=== PATIENT | male | born 1960 | race Caucasian/White ===

== ENCOUNTER → 2019-10-26 13:20 | Outpatient (CLI) | payer OTHER, SELFPAY ==
--- NOTE | 2019-10-26 13:21 | CA_ITS ---
APPROVED REPORT Exam: Exercise Treadmill Technologist: Anisa Vaughan, Ht: 6 ft 0 in Wt: 280 lbs BSA: 2.46 m2 HR: 66 bpm BP: 125/81 mmHg Indications: CAD Medical History Medications: lisinopril Allergies: codeine, hydrocodone Cardiac Risk Factors: HTN, FHX of CAD, Smoking Stress Test Details Test: Emre HR Resting HR: 79 bpm Max Heart Rate (APMHR): 162 bpm Max HR Achieved: 152 bpm Target HR (85% APMHR): 137 bpm % of APMHR: 93 Recovery HR: 117 bpm BP Resting BP: 125/81 mmHg Max BP: 160.0/88 mmHg Recovery BP: 128.0/78.0 mmHg ECG Resting ECG: Sinus Rhythm Clinical Exercise duration: 06:28 min Highest Stage Achieved: Stage 3: 3.4 mph at 14% grade. Exercise capacity: 7.0 METs Stress ECG Conclusion Emre protocol completed. Pt. c/o SOB at peak exercise that resolved during recovery. No chest pain. Occ PVC. Less than 1.5mm of ST Depression. Gxt only. Appropiate BP response. Normal exercise treadmill stress test Test Summary REST . . . . . . . Sitting REST 04:40 0.0 0.0 79 . 125/ 81 . . Stage 1 01:00 10.0 1.7 105 . . . . Stage 1 02:00 10.0 1.7 121 . . . . Stage 1 03:00 10.0 1.7 128 . . . . Stage 2 01:00 12.0 2.5 134 . 152/ 84 . . Stage 2 02:00 12.0 2.5 144 . 152/ 84 . . Stage 2 03:00 12.0 2.5 145 . 160/ 88 . . Stage 3 00:28 14.0 3.4 149 . . . Stop exercise at 06:28 RECOVERY 01:00 0.0 0.0 141 . . . . RECOVERY 02:00 0.0 0.0 124 . . . . RECOVERY 03:00 0.0 0.0 115 . 128/ 78 . . RECOVERY 04:00 0.0 0.0 112 . 147/ 73 . . RECOVERY 05:00 0.0 0.0 109 . 147/ 73 . . RECOVERY 05:24 0.0 0.0 108 . 127/ 72 . . Electronically signed by : Eugenio Guaman, 10/26/2019 19:49:19
--- NOTE | 2019-10-26 13:21 | CA_ITS ---
APPROVED REPORT EXAM: Comprehensive 2D, Doppler, and color-flow Echocardiogram Customer Solutions Coordinator: Tayler Elkins RVT Ht: 6 ft 4 in Wt: 279lbs BSA: 2.55 BP: 146/83 mmHg Indications: HTN,FAM,STENTS,EX SMOKER TDS 2D Dimensions LVOT 1.75 cm (M/F) 1.5-2.5 M-Mode Dimensions RVDd 3.26 cm (0.9-2.6) LVDd 4.35 cm (3.5-5.7) LVDs 3.02 cm (3.5-5.7) IVSd 0.76 cm (0.6-1.1) PWd 0.76 cm (0.6-1.1) EF (Teich) 58.30% FS 30.60% EDV (Teich) 85.40 mL ESV (Teich) 35.60 mL LV Diastology E/A Ratio 0.75 Mitral Valve MV A Velocity 56.00 (40-130 cm/s) Left Ventricle Left atrium is mildly enlarged, left ventricle is normal size, mild concentric left ventricular hypertrophy, visually estimated ejection fraction 55% with no regional wall motion abnormality, grade 1 diastolic dysfunction seen without tissue Doppler evidence of raise left atrial pressure. Right Ventricle Right atrium and right ventricle are mildly enlarged with normal contractility. Aortic Valve Aortic valve is minimally thickened and fibrosed, there is no aortic stenosis aortic insufficiency. Mitral Valve Mitral valve leaflets are minimally thickened, there is mild mitral regurgitation. Tricuspid Valve Tricuspid valve is grossly normal, there is mild tricuspid regurgitation, tricuspid regurgitation jet velocity is inadequate for calculation of the right ventricular systolic pressure. Pulmonic Valve Pulmonic valve is poorly visualized. Great Vessels Aortic root is normal size. Pericardium Trivial pericardial effusion noted. Conclusion 1. Mild biatrial enlargement, normal left ventricular size, mild concentric left ventricular hypertrophy, visually estimated ejection fraction 55% with no regional wall motion abnormality, grade 1 diastolic dysfunction seen without tissue Doppler evidence of raise left atrial pressure. 2. Mildly enlarged right ventricle with normal contractility. 3. Mild mitral and tricuspid regurgitation. 4. Trivial pericardial effusion noted. Electronically signed by : Eugenio Guaman, 10/26/2019 18:37:13
== END ==
PROVIDERS: PCP Family Medicine; Visit Provider Urology
DX: I10 Essential (primary) hypertension (principal); R06.00 Dyspnea, unspecified; Z02.4 Encounter for examination for driving license
CPT/HCPCS: 93017; 93306

== ENCOUNTER 2020-01-10 12:30 | Emergency (ER) | payer OTHER, SELFPAY ==
[2020-01-10 12:41] VITALS: BP 158/89; PULSE 92; RESP 20; O2SAT 98; BMI 38.0
--- NOTE | 2020-01-10 12:45 | HMH.EDUTC ---
[facility] [place] Clinical Impression: Muscle strain Disposition: Home, Self-Care Condition on Discharge: Good Instructions: DI for Low Back Pain, DI for Muscle Strain Additional Instructions: follow up with pcp this week if symptoms worsen or do not improve return Prescriptions: predniSONE [Prednisone 20mg Tab] 20 mg PO BID #10 tab Prescription Printed Referrals: Nalini Junior APRN [Primary Care Provider] - Forms: Work/School Release Medical Decision Making - Jose Inquiry Pt receiving controlled substance: No Vital Signs: 01/10/20 12:41 Pulse Rate [Radial] 92 H Respiratory Rate 20 Blood Pressure [Right Arm] 158/89 H Blood Pressure Mean [Right Arm] 112 Blood Pressure Source [Right Arm] Automatic Cuff Blood Pressure Position [Right Arm] Sitting 02 Sat by Pulse Oximetry 98 Oxygen Delivery Method Room Air [facility] [place] - General Chief complaint: Urgent Treatment Center Stated complaint: back pain Time Seen by Provider: 01/10/20 12:45 Mode of Arrival: Ambulatory Source of Information: Patient Limitations: No Limitations Description of Symptoms (Recalled from Triage Doc. by RN): States he hurt his back saturday lifting something. HEENT Symptoms (Recalled from RN notes): No Resp Symptoms (Recalled from RN notes): No Skin Symptoms (Recalled from RN notes): No MS Symptoms (Recalled from RN notes): Yes Functional Status (Recalled from RN notes): wnl - History of Present Illness Provider Complaint: 59 yr old male presents for low back pain. pt states he was lifting something on saturday and twisted and felt a pull in his lower back. Pt states pain with movement. denies loss of bowel or bladder. Pt states pain radiates into buttocks but not down legs. - Related Data Home Medications Medication Instructions Recorded Confirmed lisinopril 20 1 tab PO DAILY tab 10/19/19 11/06/19 mg-hydrochlorothiazide 12.5 mg tablet Previous Rx's Medication Instructions Recorded lisinopril 20 mg tablet 20 mg PO DAILY #30 tab 10/19/19 aspirin 81 mg tablet,delayed 81 mg PO DAILY #30 tab 11/06/19 release rosuvastatin 20 mg tablet 20 mg PO DAILY #30 tab 11/06/19 predniSONE [Prednisone 20mg 20 mg PO BID #10 tab 01/10/20 Tab] Allergies Allergy/AdvReac Type Severity Reaction Status Date / Time codeine [CODEINE] Allergy Unknown Verified 11/06/19 09:11 hydrocodone [HYDROCODONE] Allergy Unknown Verified 11/06/19 09:11 - Worker's Comp Is this a Worker's Comp case?: No [facility] History - Hepatitis A Screen Drug use history?: No High risk sexual behaviors?: No History of sexually transmitted infection?: No Currently employed?: No Childcare worker?: No Do you have indoor plumbing?: Yes Do you have electricity?: Yes Attestation statement:: This patient has been screened for Hepatitis A risk factors. I have reviewed the patient's past medical history: Yes Medical History: Reports:: Cancer, Hypertension Denies:: Diabetes Mellitus Type 1, Diabetes Mellitus Type 2 - Social History Smoking Status: Former smoker Alcohol Intake: never Occupational Status: other Housing: house Household Members: spouse ROS Obtained: Yes Systems reviewed as appropriate & no additional complaints - Constitutional Constitutional: Reports system reviewed and no additional complaints, except as docu, Denies fatigue, Denies fever(s) - Eyes Eyes: Reports system reviewed and no additional complaints, except as docu, Denies change in vision - ENT Ears, Nose, Mouth, and Throat: Reports system reviewed and no additional complaints, except as docu, Denies bleeding gums - Cardiovascular Cardiovascular: Reports system reviewed and no additional complaints, except as docu, Denies chest pain at rest - Respiratory Respiratory: Yes system reviewed and no additional complaints, except as docu, No change in phlegm color - Gastrointestinal Gastrointestingal: Reports: system reviewed and no additional complaints, exc
[2020-01-10 13:00] VITALS: BP 158/89; PULSE 92; RESP 20; TEMP 36.7; O2SAT 98
== END 2020-01-10 13:02 | disposition home or self-care (01) ==
PROVIDERS: Emergency Provider Nurse Practitioner Family; PCP Nurse Practitioner
DX: S33.5XXA Sprain of ligaments of lumbar spine, initial encounter (principal); X50.1XXA Overexertion from prolonged static or awkward postures, initial encounter; Y92.019 Unspecified place in single-family (private) house as the place of occurrence of the external cause; I10 Essential (primary) hypertension; E78.5 Hyperlipidemia, unspecified; I25.10 Atherosclerotic heart disease of native coronary artery without angina pectoris
CPT/HCPCS: 96372; 99201

== ENCOUNTER 2020-01-29 11:39 | Emergency (ER) | payer OTHER, SELFPAY ==
[2020-01-29 12:27] VITALS: BP 152/89; PULSE 64; RESP 20; TEMP 36.4; O2SAT 97; BMI 36.6
--- NOTE | 2020-01-29 12:57 | HMH.EDUTC ---
[facility] [place] Clinical Impression: Low back pain Qualifiers: Chronicity: acute Back pain laterality: right Sciatica presence: with sciatica Sciatica laterality: sciatica of right side Qualified Code(s): M54.41 - Lumbago with sciatica, right side Disposition: Home, Self-Care Condition on Discharge: Good Instructions: Low Back Pain, DI for Low Back Pain Additional Instructions: Go home and rest. It would be best if you rested tomorrow too. No heavy lifting. No twisting. Take the oral medications as directed. The muscle relaxer (robaxin) will make you drowsy, so don't drive or operate heavy machinery after taking it. Don't start the oral steroids (medrol dose pack) until tomorrow, since you had the shots in here today. Follow up with your regular doctor. GO TO THE ER FOR ANY WORSENING SYMPTOMS OR CONCERN, ESPECIALLY BOWEL OR BLADDER ISSUES, SADDLE AREA NUMBNESS, FEVER, ETC Prescriptions: methylPREDNISolone [Medrol] 4 mg PO DIRECTED 6 Days #21 tab.ds.pk Transmission Status: Received by [facility] Methocarbamol [Robaxin 500mg Tab] 500 mg PO BIDP PRN #30 tab PRN Reason: Muscle Spasm Transmission Status: Received by [facility] Referrals: Nalini Junior APRN [Primary Care Provider] - Forms: Work/School Release Time of Disposition: 12:59 Medical Decision Making - Medical Records Medical records reviewed: No: I reviewed the patient's medical records. - Jose Inquiry Pt receiving controlled substance: No Vital Signs: 01/29/20 12:27 01/29/20 13:39 Temperature 97.6 F 97.6 F Temperature Source Oral Oral Pulse Rate 64 Pulse Rate [Radial] 64 Respiratory Rate 20 20 Blood Pressure 152/89 H Blood Pressure [Right Arm] 152/89 H Blood Pressure Mean [Right Arm] 110 Blood Pressure Source Automatic Cuff Blood Pressure Source [Right Arm] Automatic Cuff Blood Pressure Position Sitting Blood Pressure Position [Right Arm] Sitting 02 Sat by Pulse Oximetry 97 Oxygen Delivery Method Room Air Room Air Orders (Tests/Meds): ED MEDICATIONS Discontinued Medications Generic Name Dose Route Start Last Admin Trade Name Freq PRN Reason Stop Dose Admin Ketorolac Tromethamine 60 mg 01/29/20 12:56 01/29/20 13:05 Ketorolac 60mg/2ml Vial IM 10/09/20 12:57 60 mg ONCE ONE Administration Methylprednisolone Sodium Succinate 125 mg 01/29/20 12:56 01/29/20 13:05 Methylprednisolone Sod Succ 125mg Vial IM 01/29/20 12:57 125 mg ONCE ONE Administration [facility] [place] HPI - General Stated complaint: Back pain Time Seen by Provider: 01/29/20 12:57 Mode of Arrival: Ambulatory Source of Information: Patient Limitations: No Limitations Description of Symptoms (Recalled from Triage Doc. by RN): lower back pain HEENT Symptoms (Recalled from RN notes): No Resp Symptoms (Recalled from RN notes): No Skin Symptoms (Recalled from RN notes): No MS Symptoms (Recalled from RN notes): Yes Functional Status (Recalled from RN notes): wnl - History of Present Illness Provider Complaint: He c/o continued low back pain that radiates down his right leg. - Related Data Home Medications Medication Instructions Recorded Confirmed lisinopril 20 1 tab PO DAILY tab 10/19/19 11/06/19 mg-hydrochlorothiazide 12.5 mg tablet Previous Rx's Medication Instructions Recorded aspirin 81 mg tablet,delayed 81 mg PO DAILY #30 tab 11/06/19 release rosuvastatin 20 mg tablet 20 mg PO DAILY #30 tab 11/06/19 predniSONE [Prednisone 20mg 20 mg PO BID #10 tab 01/10/20 Tab] lisinopril 20 mg tablet 20 mg PO DAILY #30 tab 01/20/20 Methocarbamol [Robaxin 500mg Tab] 500 mg PO BIDP PRN #30 tab 01/29/20 methylPREDNISolone [Medrol] 4 mg PO DIRECTED 6 Days #21 01/29/20 tab.ds.pk Allergies Allergy/AdvReac Type Severity Reaction Status Date / Time codeine [CODEINE] Allergy Unknown Verified 11/06/19 09:11 hydrocodone [HYDROCODONE] Allergy Unknown Verified 11/06/19 09:11
[2020-01-29 13:39] VITALS: BP 152/89; PULSE 64; RESP 20; TEMP 36.4; O2SAT 97
== END 2020-01-29 13:41 | disposition home or self-care (01) ==
PROVIDERS: Emergency Provider Nurse Practitioner Family; PCP Nurse Practitioner
DX: M54.41 Lumbago with sciatica, right side (principal); I10 Essential (primary) hypertension; E78.5 Hyperlipidemia, unspecified; Z88.5 Allergy status to narcotic agent; Z87.891 Personal history of nicotine dependence
CPT/HCPCS: 96372; 99201

== ENCOUNTER 2020-03-27 15:40 | Emergency (ER) | payer OTHER, SELFPAY ==
[2020-03-27 15:45] VITALS: BP 152/84; PULSE 92; RESP 25; TEMP 36.2; O2SAT 97; BMI 38.0
[2020-03-27 16:07] LABS: UTC Influenza A Antigen Negative (Negative); UTC Influenza B Antigen Positive (Negative)
--- NOTE | 2020-03-27 16:12 | HMH.EDUTC ---
[facility] Disposition Clinical Impression: Influenza B Disposition: Home, Self-Care Condition on Discharge: Good Instructions: How to Avoid a Cold or Flu, Influenza Additional Instructions: increase fluids No sign of a bacterial infection. Likely viral. Viruses can take 7-14 days to run their course. Nasal saline and bulb syringe or nose Yamileth to remove nasal drainage to help with nasal congestion. Hard to eat, drink, sleep with nasal congestion so important to keep this cleaned out. Monitor temp. Tylenol or Motrin as needed for pain or fever Encourage fluids, water, Gatorade, Powerade, Pedialyte if /toddler/child Warm salt water gargles Warm fluids Sore throat lozenges Sleep elevated Humidifier/vaporizer Your covid swab was sent. These results are typically sent to the primary care. Be sure you follow-up in 2-3 days if no improvement so we can review the results and treat if necessary Follow-up immediately for new or worsening symptoms or no noticeable improvement over the next 48-72 hours. isolate until test results are known Prescriptions: Fluticasone Propionate [Flonase 50mcg nasal spray 16gm] 1 spr NS DAILY 14 Days #1 bottle Prescription Printed Oseltamivir Phosphate [Tamiflu 75mg Capsule] 75 mg PO BID #10 cap Prescription Printed Referrals: Nalini Junior APRN [Primary Care Provider] - Time of Disposition: 16:19 Medical Decision Making - Jose Inquiry Pt receiving controlled substance: No Vital Signs: 03/27/20 15:45 Temperature 97.1 F L Temperature Source Temporal Artery Scan Pulse Rate [Right Brachial] 92 H Respiratory Rate 25 H Blood Pressure [Right Arm] 152/84 H Blood Pressure Mean [Right Arm] 106 Blood Pressure Source [Right Arm] Automatic Cuff Blood Pressure Position [Right Arm] Sitting 02 Sat by Pulse Oximetry 97 Oxygen Delivery Method Room Air - Lab Data Lab Results 03/27/20 16:05: Influenza Type A Ag Negative, Influenza Type B Ag Positive A Orders (Tests/Meds): ORDERS Category Date Time Status Covid-19 Nasal PCR ([facility]) Routine Lab 03/27/20 16:05 Ordered [facility] HPI - General Chief complaint: Urgent Treatment Center Stated complaint: SOA;Congested Time Seen by Provider: 03/27/20 16:12 Mode of Arrival: Ambulatory Source of Information: Patient Limitations: No Limitations Description of Symptoms (Recalled from Triage Doc. by RN): PATIENT C/O CONGESTION, SOA, AND NOT FEELING WELL SINCE THIS MORNING HEENT Symptoms (Recalled from RN notes): No Resp Symptoms (Recalled from RN notes): Yes Skin Symptoms (Recalled from RN notes): No MS Symptoms (Recalled from RN notes): No Functional Status (Recalled from RN notes): WNL - History of Present Illness Provider Complaint: 60 yr old male presents for soa due to nasal congestion, body aches,chills, cough, and fever. - Related Data Home Medications Medication Instructions Recorded Confirmed lisinopril 20 1 tab PO DAILY tab 10/19/19 11/06/19 mg-hydrochlorothiazide 12.5 mg tablet Previous Rx's Medication Instructions Recorded aspirin 81 mg tablet,delayed 81 mg PO DAILY #30 tab 11/06/19 release lisinopril 20 mg tablet 20 mg PO DAILY #30 tab 01/20/20 rosuvastatin 20 mg tablet 20 mg PO HS #90 tab 02/11/20 Fluticasone Propionate [Flonase 1 spr NS DAILY 14 Days #1 bottle 03/27/20 50mcg nasal spray 16gm] Oseltamivir Phosphate [Tamiflu 75 mg PO BID #10 cap 03/27/20 75mg Capsule] Allergies Allergy/AdvReac Type Severity Reaction Status Date / Time codeine [CODEINE] Allergy Unknown Verified 11/06/19 09:11 hydrocodone [HYDROCODONE] Allergy Unknown Verified 11/06/19 09:11 - Worker's Comp Is this a Worker's Comp case?: No [facility] History - Hepatitis A Screen Drug use history?: No High risk sexual behaviors?: No History of sexually transmitted infection?: No Currently employed?: No Childcare worker?: No Do you have indoor plumbing?: Yes Do you have electricity?: Yes Attestatio
[2020-03-27 16:21] VITALS: BP 152/84; PULSE 92; RESP 25; TEMP 36.2; O2SAT 97
== END 2020-03-27 16:28 | disposition home or self-care (01) ==
PROVIDERS: Emergency Provider Nurse Practitioner Family; PCP Nurse Practitioner
DX: J11.1 Influenza due to unidentified influenza virus with other respiratory manifestations (principal); I10 Essential (primary) hypertension; Z87.891 Personal history of nicotine dependence; Z88.5 Allergy status to narcotic agent
CPT/HCPCS: 87804; 99201; U0003

== ENCOUNTER → 2020-09-08 11:21 | Outpatient (CLI) | payer OTHER, SELFPAY ==
[2020-09-08 12:23] LABS: Blood Urea Nitrogen 13 mg/dl (9-20); Estimated Glomerular Filt Rate 115 ml/min (>60); GFR (African American) 140 ML/MIN (>60)
== END ==
LOC: LAB 11:21
PROVIDERS: Visit Provider Nurse Practitioner Family
DX: I10 Essential (primary) hypertension (principal)
CPT/HCPCS: 36415; 82565; 84520

== ENCOUNTER → 2020-09-09 11:06 | Outpatient (CLI) | payer OTHER, SELFPAY ==
--- NOTE | 2020-09-09 11:11 | CT_ITS ---
PROCEDURE INFORMATION: Exam: CT Abdomen And Pelvis With Contrast Exam date and time: 09/09/2020 11:11 AM Age: 60 years old Clinical indication: Abdominal pain; Generalized; Patient HX: Umbilical hernia with obstruction; Additional info: Umbilical hernia w/ obstruction, w/o gangrene TECHNIQUE: Imaging protocol: Computed tomography of the abdomen and pelvis with contrast. Radiation optimization: All CT scans at this facility use at least one of these dose optimization techniques: automated exposure control; mA and/or kV adjustment per patient size (includes targeted exams where dose is matched to clinical indication); or iterative reconstruction. Contrast material: ISOVUE; Contrast volume: 75 ml; Contrast route: IV; Other contrast: Oral; COMPARISON: CT ABDOMEN PELVIS WO CON 03/22/2019 10:10 PM FINDINGS: Lungs: Bibasilar atelectasis Liver: Hepatic steatosis Gallbladder and bile ducts: Cholecystectomy Pancreas: Normal. No ductal dilation. Spleen: Normal. No splenomegaly. Adrenal glands: Normal. No mass. Kidneys and ureters: Normal. No hydronephrosis. Stomach and bowel: No obstruction. No mucosal thickening Appendix: Normal appendix Intraperitoneal space: Unremarkable. No free air. No significant fluid collection. Vasculature: Unremarkable. No abdominal aortic aneurysm. Lymph nodes: Pathologic peripancreatic node 15 x 13 mm Urinary bladder: Unremarkable as visualized. Reproductive: Unremarkable as visualized. Bones/joints: Unremarkable. No acute fracture. Soft tissues: Umbilical hernia contains fat. No bowel. Mild inflammatory changes within the hernia may indicate incarceration.. IMPRESSION: Umbilical hernia contains fat. No bowel. Mild inflammatory changes within the hernia may indicate incarceration..
== END ==
LOC: RAD 11:09
PROVIDERS: PCP Family Medicine; Visit Provider Nurse Practitioner Family
DX: K42.0 Umbilical hernia with obstruction, without gangrene (principal)
CPT/HCPCS: 74177; Q9967

== ENCOUNTER → 2020-10-27 08:07 | Outpatient (CLI) | payer OTHER, SELFPAY ==
[2020-10-27 08:33] LABS: Basophils # 0.1 K/mm3 (0-0.2); Basophils % 1.3 % (0.1-2.0); Eosinophils # 0.2 K/mm3 (0.0-0.4); Eosinophils % 2.9 % (0.1-12.0); Hematocrit 43.1 % (42.0-52.0); Hemoglobin 14.9 g/dL (14.1-18.0); Lymphocytes # 2.1 K/mm3 (0.7-4.5); Lymphocytes % 26.5 % (10-50); Mean Corpuscular HGB Conc 34.5 g/dL (31.8-35.4); Mean Corpuscular Hemoglobin 29.3 pg (27.0-31.2); Mean Corpuscular Volume 85.1 fl (80-94); Mean Platelet Volume 7.4 fl (7.4-10.4); Monocytes # 0.4 K/mm3 (0.1-1.0); Monocytes % 4.8 % (1.7-9.3); Neutrophils # 5.1 K/mm3 (1.8-7.8); Neutrophils % 64.5 % (37.0-80.0); Platelet Count 266 K/mm3 (142-424); Red Blood Count 5.07 M/mm3 (4.60-6.20); Red Cell Distribution Width 13.6 % (11.5-17.5); White Blood Count 7.9 K/mm3 (4.8-10.8)
[2020-10-27 09:54] LABS: Anion Gap 14.5 mEq/L (5-15); Blood Urea Nitrogen 15 mg/dl (9-20); Calcium 8.9 mg/dl (8.4-10.2); Carbon Dioxide 21 mmol/L (22.0-30.0); Chloride 108 mmol/L (98-107); Estimated Glomerular Filt Rate 99 ml/min (>60); GFR (African American) 120 ML/MIN (>60); Glucose 118 mg/dl (74-100); Potassium 4.5 mmoL/L (3.5-5.1); Sodium 139 mmol/L (136-145)
== END ==
PROVIDERS: Visit Provider Surgery
DX: Z01.812 Encounter for preprocedural laboratory examination (principal); Z11.52 Encounter for screening for COVID-19; K42.9 Umbilical hernia without obstruction or gangrene
CPT/HCPCS: 36415; 80048; 85025; U0003

== ENCOUNTER 2020-10-28 06:08 | Day surgery (SDC) | payer OTHER, SELFPAY ==
[2020-10-20 14:05] VITALS: BMI 38.0
[2020-10-28] VITALS (14 sets, daily range): BP systolic 103–196; BP diastolic 61–107; PULSE 44–79; RESP 12–18; TEMP 36.3–43; O2SAT 91–97
--- NOTE | 2020-10-28 07:52 | P.PN_ITS ---
[facility] Anesthesia Checklist - Structural Data Admitted From: Home Planned Operative Procedure/s: umbilical hernia repair Consent for Planned Operative Procedure(s) Verified: Yes - Additional verifications Anesthesia Reactions: No Hx Blood Transfusions: No Blood Transfusion Reaction: No - Airway Assessment C-Spine Mobility Assessed: Yes TMJ Mobility Assessed: Yes Dentition: Poor Dentition - Neurological Assessment Level of Consciousness: Awake, Alert, Appropriate - Anesthesia Plan Anesthesia Risk discussed: Yes Anesthesia Plan: Verified ASA Class: III Anesthesia Type: General [facility] History I have reviewed the patient's past medical history: Yes Medical History: Reports:: Cancer (lymphoma), Hypertension Denies:: Diabetes Mellitus Type 1, Diabetes Mellitus Type 2, Internal Pacemaker, MRSA, Seizures *Have you ever received a pneumonia vaccine?: No *Have you received a flu vaccine this season?: No Other Medical History: Denies: Blood Transfusion Reaction Anesthesia experience/problems:: none Other Surgeries: Yes: Colonoscopy. No: Pacemaker Amputation: No Fractures: No - *Social History Last grade of school completed: Some college Smoking Status: Never smoker Alcohol Intake: current Alcohol Intake Frequency:: holidays/special occasions only Substance Use Type: denies use *Occupational Status:: employed Housing: house Household Members: spouse *Travel in the last 8 weeks: Inside the [facility] Family Hx:: Cancer, Stroke
--- NOTE | 2020-10-28 08:39 | P.OP_ITS ---
Date of procedure: 10/28/20 Pre-op Diagnosis:: Umbilical hernia with incarcerated omentum Post-op Diagnosis:: Same Procedure performed:: Laparoscopic-assisted open umbilical hernia repair with 8.2 cm Ventralex mesh Surgeon:: Artemio Jc MD POULTRY HATCHERY MANAGER:: Uriah Collins Anesthesia: GETA Estimated blood loss (mL): 15 Operative findings:: Large portion of omentum incarcerated through 2 cm umbilical defect Operative note:: After informed consent was obtained the patient was taken to the operating room and placed in the supine position. General anesthesia was induced and his abdomen was prepped and draped in a sterile fashion. After infiltration with local anesthetic a stab incision was made in the left upper quadrant. A Veress needle was placed in position. The abdomen was insufflated. A 5 mm optical trocar was placed in the left flank. An additional 5 mm trocar was placed at the Veress needle insertion site. Careful blunt dissection was utilized to free a large portion of incarcerated omentum. No sign of active bleeding or injury was noted. An infraumbilical incision was made with scalpel. The hernia sac wa s transected and passed off for pathologic evaluation. A 2 cm defect was confirmed. An 8.2 cm Ventralex mesh was then placed in position and secured with 0 Ethibond. 0 Ethibond was then utilized to complete a primary repair over the mesh. The wound was thoroughly irrigated. The umbilical stump was reapproximated with interrupted 2-0 Vicryl. Skin was closed with 4-0 Monocryl. Dressings were applied and the patient was transferred to recovery in stable condition after extubation. Condition: stable Disposition: PACU Specimens:: Hernia sac Complications:: No immediate
--- NOTE | 2020-10-28 08:47 | HMH.ANESI ---
[facility] Anesthesia Record Part I Intake, IV Amount: 1,800 Estimated blood loss (mL): 0 Urine output (mL): 0 Blood Pressure: 160/79 SaO2: 93 Pulse Rate: 69 Respiratory Rate: 12 Temperature: 98.2 F Patient is:: Awake Stable to PACU at:: 08:45
--- NOTE | 2020-10-31 14:17 | P.PN_ITS ---
[facility] Anesthesia Record Part II Discharge Time: 09:45 Destination: Surgical Day Care (OP Surgery) PACU nurse assessment reviewed?: Yes Patient Condition:: Good Anesthesia Complications:: None Swallowing reflex intact?: Yes Cyanosis?: No Blood Pressure: 121/84 Pulse Rate: 59 Temperature: 98 F Mental Status: Alert & Oriented Pain level:: 0 Nausea and/or vomitting:: None Intake, IV Amount: 0
[2020-10-31 14:18] VITALS: BP 121/84; PULSE 59; TEMP 36.6
== END 2020-10-28 10:26 | disposition home or self-care (01) ==
LOC: OR 06:09
PROVIDERS: PCP Family Medicine; Visit Provider Surgery
PROC: 0WQF4ZZ Repair Abdominal Wall, Percutaneous Endoscopic Approach (ICD-10-PCS; CPT 49653; principal; 2020-10-28 07:30)
DX: K42.0 Umbilical hernia with obstruction, without gangrene (principal); I10 Essential (primary) hypertension; Z79.899 Other long term (current) drug therapy
CPT/HCPCS: 49653; 96374; C1781; J2405; J2710

== ENCOUNTER → 2021-02-09 08:44 | Outpatient (CLI) | payer OTHER, SELFPAY | PROVIDERS: PCP Family Medicine; Visit Provider Nurse Practitioner | DX: Z20.822 Contact with and (suspected) exposure to COVID-19 (principal) | CPT/HCPCS: C9803; U0003; U0005 ==

== ENCOUNTER 2021-05-07 10:10 | Emergency (ER) | payer OTHER, SELFPAY ==
--- NOTE | 2021-05-07 13:43 | HMH.EDUTC ---
[facility] [place] Disposition Clinical Impression: Viral syndrome, Exposure to COVID-19 virus Sinusitis Qualifiers: Sinusitis location: unspecified location Chronicity: acute Recurrence: non-recurrent Qualified Code(s): J01.90 - Acute sinusitis, unspecified Disposition: Home, Self-Care Condition on Discharge: Good Instructions: DI for Sinusitis, DI for COVID-19 (Suspected or Confirmed ), Preventing the Spread of Coronavirus Discharge Instructions Additional Instructions: Drink plenty of fluids. Take tylenol or ibuprofen for pain or fever. Take the medications as directed. Follow up with your regular doctor. GO TO THE ER FOR ANY WORSENING SYMPTOMS Quarantine until you know the results of your covid-19 test. If it is positive, the health department should call you and give you further instructions about your length of Quarantine and other things. Notify your school or workplace of your results and follow their instructions regarding return to work/school. Don't start the oral steroids until tomorrow, since you had the shot here today. Prescriptions: Ondansetron [Zofran 4mg ODT] 4 mg PO Q8HP PRN #20 tab PRN Reason: Nausea Transmission Status: Received by [facility] methylPREDNISolone [Medrol] 4 mg PO DIRECTED 6 Days #21 packet Transmission Status: Received by [facility] Azithromycin [Z-Mckay 250mg Tab*] 250 mg PO UD DOSE PK #6 tab Transmission Status: Received by [facility] Referrals: Steven Chino MD [Primary Care Provider] - Forms: Work/School Release Time of Disposition: 14:40 Medical Decision Making - Medical Records Medical records reviewed: No: I reviewed the patient's medical records. - Jose Inquiry Pt receiving controlled substance: No Vital Signs: 05/07/21 14:11 05/07/21 14:55 Temperature 98 F 98 F Temperature Source Temporal Artery Scan Pulse Rate 65 Pulse Rate [Left] 65 Respiratory Rate 18 18 Blood Pressure 165/88 H Blood Pressure [Right Arm] 165/88 H Blood Pressure Mean [Right Arm] 113 02 Sat by Pulse Oximetry 97 - Lab Data Lab results reviewed: Yes: I reviewed the patient's lab results. Lab Results 05/07/21 13:42: Group A Strep Rapid Negative 05/07/21 14:08: Influenza Type A Ag Negative, Influenza Type B Ag Negative Orders (Tests/Meds): ED MEDICATIONS Discontinued Medications Generic Name Dose Route Start Last Admin Trade Name Papito PRN Reason Stop Dose Admin Ceftriaxone Sodium 1 gm 05/07/21 14:22 05/07/21 14:45 Ceftriaxone 1gm Vial IM 05/07/21 14:23 1 gm ONCE ONE Administration Lidocaine HCl 0 ml 05/07/21 14:22 05/07/21 14:45 Lidocaine 1% 5ml Pf Vial IM 05/07/21 14:23 2 ml ONCE ONE Administration Methylprednisolone Sodium Succinate 125 mg 05/07/21 14:22 05/07/21 14:54 Methylprednisolone Sod Succ 125mg Vial IM 05/07/21 14:23 125 mg ONCE ONE Administration ORDERS Category Date Time Status Strep Screen Confirmation Stat Micro 05/07/21 13:42 Received [facility] [place] HPI - General Stated complaint: covid symptoms Time Seen by Provider: 05/07/21 13:43 - History of Present Illness Provider Complaint: He states that for the past 2 days he has had sinus congestion, sore throat, ear pressure, nasal drainage and a nonproductive cough. He denies fever or chills. He has been fully vaccinated against covid-19. - Related Data Home Medications Medication Instructions Recorded Confirmed lisinopril 20 1 tab PO DAILY tab 10/19/19 11/09/20 mg-hydrochlorothiazide 12.5 mg tablet Aspirin [Low Dose Aspirin EC] 81 mg PO DAILY 10/19/20 11/09/20 Fluticasone Propionate [Flonase 1 spr NS DAILY 10/19/20 11/09/20 50mcg nasal spray 16gm] Rosuvastatin Calcium 20 mg PO HS 10/19/20 11/09/20 Previous Rx's Medication Instructions Recorded Azithromycin [Z-Mckay 250mg Tab*] 250 mg PO UD DOSE PK #6 tab 05/07/21 Ondansetron [Zofran 4mg ODT] 4 mg PO Q8HP PRN #20 tab 05/07/21 met
[2021-05-07 14:11] VITALS: BP 165/88; PULSE 65; RESP 18; TEMP 36.6; O2SAT 97; BMI 38.0
[2021-05-07 14:24] LABS: Strep Scrn Group A (Rapid) Negative (Negative)
[2021-05-07 14:38] LABS: UTC Influenza A Antigen Negative (Negative); UTC Influenza B Antigen Negative (Negative)
[2021-05-07 14:55] VITALS: BP 165/88; PULSE 65; RESP 18; TEMP 36.6
== END 2021-05-07 14:56 | disposition home or self-care (01) ==
PROVIDERS: Emergency Provider Nurse Practitioner Family; PCP Family Medicine
DX: U07.1 COVID-19 (principal); I10 Essential (primary) hypertension; J01.90 Acute sinusitis, unspecified
CPT/HCPCS: 87430; 87804; 96372; 99202; C9803; G0463; J0696; U0003; U0005

== ENCOUNTER → 2021-05-11 10:24 | Outpatient (CLI) | payer OTHER, SELFPAY | PROVIDERS: PCP Family Medicine; Visit Provider Nurse Practitioner | DX: U07.1 COVID-19 (principal) | CPT/HCPCS: C9803; U0003; U0005 ==

== ENCOUNTER 2021-11-26 21:18 | Emergency (ER) | payer OTHER, SELFPAY ==
--- NOTE | 2021-11-26 21:50 | XR_ITS ---
PROCEDURE INFORMATION: Exam: XR Chest Exam date and time: 11/26/2021 10:06 PM Age: 61 years old Clinical indication: Pain; Chest pressure; Additional info: Cp TECHNIQUE: Imaging protocol: Radiologic exam of the chest. Views: 1 view. COMPARISON: CR CXR2V XR chest 2V 07/22/2018 6:11 AM FINDINGS: Lungs: No consolidation. Pleural spaces: No pneumothorax. Heart/Mediastinum: No cardiomegaly. Bones/joints: No acute abnormality. IMPRESSION: No acute findings.
--- NOTE | 2021-11-26 21:50 | ECG_ITS ---
APPROVED REPORT Exam: Resting ECG HR:64 bpm ECG Measurements Heart Rate 64 AXES MO 171 P 37 QRSd 87 QRS 38 QT 365 T 68 QTc 374 Conclusion SINUS RHYTHM left atrial abnormality Late r wave progression -new since 2018- o/w normal ecg UNCONFIRMED REPORT Electronically signed by : Steven Mckeon MD 11/27/2021 13:56:17
--- NOTE | 2021-11-26 21:58 | PC.NURSE ---
RAD at BS for XRAY
[2021-11-26 21:59] VITALS: BP 148/83; PULSE 80; RESP 18; TEMP 36.8; O2SAT 98; BMI 38.0
--- NOTE | 2021-11-26 22:15 | PC.NURSE ---
RT at BS to administer breathing treatment.
[2021-11-26 22:25] LABS: Basophils # 0.2 K/mm3 (0-0.2); Basophils % 1.9 % (0.1-2.0); Eosinophils # 0.3 K/mm3 (0.0-0.4); Eosinophils % 2.7 % (0.1-12.0); Hematocrit 46.8 % (42.0-52.0); Hemoglobin 15.4 g/dL (14.1-18.0); Lymphocytes # 2.3 K/mm3 (0.7-4.5); Mean Corpuscular HGB Conc 32.9 g/dL (31.8-35.4); Mean Corpuscular Hemoglobin 30.2 pg (27.0-31.2); Mean Corpuscular Volume 91.8 fl (80-94); Mean Platelet Volume 8.3 fl (7.4-10.4); Monocytes # 0.4 K/mm3 (0.1-1.0); Monocytes % 4.8 % (1.7-9.3); Neutrophils % 65.6 % (37.0-80.0); Platelet Count 266 K/mm3 (142-424); Red Blood Count 5.09 M/mm3 (4.60-6.20); Red Cell Distribution Width 13.4 % (11.5-17.5); White Blood Count 9.1 K/mm3 (4.8-10.8)
[2021-11-26 22:33] LABS: Alanine Aminotransferase 50 U/L (12-78); Albumin Level 3.8 g/dl (3.5-5.0); Albumin/Globulin Ratio 1.3 (1.1-1.8); Alkaline Phosphatase 79 U/L (38-126); Anion Gap 9.7 mEq/L (5-15); Aspartate Amino Transferase 38 U/L (17-59); Bilirubin,Total 0.2 mg/dl (0.2-1.3); Blood Urea Nitrogen 14 mg/dl (9-20); Calcium 9.1 mg/dl (8.4-10.2); Carbon Dioxide 24 mmol/L (22.0-30.0); Chloride 108 mmol/L (98-107); Creatinine Clearance Estimated 157 mL/min (50-200); Estimated Glomerular Filt Rate 86 ml/min (>60); GFR (African American) 104 ML/MIN (>60); Glucose 142 mg/dl (74-100); Potassium 3.7 mmoL/L (3.5-5.1); Sodium 138 mmol/L (136-145); Total Protein,Serum 6.8 g/dl (6.3-8.2)
[2021-11-26 22:48] LABS: Troponin I < 0.01 ng/ml (0.00-0.034)
[2021-11-26 22:50] VITALS: PULSE 85
[2021-11-26 22:51] LABS: Coronavirus 19, PCR Not Detected (NotDetected); Influenza A, PCR Not Detected (NotDetected); Influenza B, PCR Not Detected (NotDetected)
--- NOTE | 2021-11-27 01:15 | HMH.EDCP ---
ED Disposition Clinical Impression: Angina at rest CAD (coronary artery disease) Qualifiers: Coronary Disease-Associated Artery/Lesion type: [place] artery [place] vs. transplanted heart: [place] heart Associated angina: with unspecified form of angina Qualified Code(s): I25.119 - Atherosclerotic heart disease of [place] coronary artery with unspecified angina pectoris Disposition: Home, Self-Care Condition on Discharge: Good Instructions: DI for Angina Additional Instructions: see card in am for follow up Prescriptions: Isosorbide Mononitrate [Imdur 30mg ER tablet] 30 mg PO DAILY #14 tab Transmission Status: Pending to [facility] Referrals: Steven Chino MD [Primary Care Provider] - Randolph Hernandez MD [Staff Physician] - - Critical Care Critical Care Time: No Attestation: On 11/26/21, the high probability of a clinically significant, sudden or life threatening deterioration of the following system(s) required my full and direct attention, intervention and personal management. The time I documented below is in addition to time spent performing reported procedures but includes the following listed in this critical care notation. Medical Decision Making - Medical Records Medical records reviewed: Yes: I reviewed the patient's medical records. - Jose Inquiry Pt receiving controlled substance: No Vital Signs: 11/26/21 21:59 11/26/21 22:50 Temperature 98.2 F Temperature Source Oral Pulse Rate 85 Pulse Rate [Apical] 80 Respiratory Rate 18 Blood Pressure [Right Arm] 148/83 H Blood Pressure Mean [Right Arm] 104 Blood Pressure Source [Right Arm] Automatic Cuff Blood Pressure Position [Right Arm] Sitting 02 Sat by Pulse Oximetry 98 Oxygen Delivery Method Room Air - Lab Data Lab results reviewed: Yes: I reviewed the patient's lab results. Lab Results 11/26/21 21:45: SARS-CoV-2 (PCR) Not detected, Influenza A Untype (PCR) Not detected, Influenza Type B (PCR) Not detected 11/26/21 22:00: WBC 9.1, RBC 5.09, Hgb 15.4, Hct 46.8, MCV 91.8, MCH 30.2, MCHC 32.9, RDW 13.4, Plt Count 266, MPV 8.3, Neut % (Auto) 65.6, Lymph % (Auto) 25.0, [place] % (Auto) 4.8, Eos % (Auto) 2.7, Baso % (Auto) 1.9, Neut # (Auto) 6.0, Lymph # (Auto) 2.3, [place] # (Auto) 0.4, Eos # (Auto) 0.3, Baso # (Auto) 0.2 11/26/21 22:00: Sodium 138, Potassium 3.7, Chloride 108 H, Carbon Dioxide 24, Anion Gap 9.7, BUN 14, Creatinine 0.90, Estimated Creat Clear 157, Estimated GFR 86, Est GFR ( Amer) 104, Glucose 142 H, Calcium 9.1, Total Bilirubin 0.2, AST 38, ALT 50, Alkaline Phosphatase 79, Troponin I < 0.01, Total Protein 6.8, Albumin 3.8, Globulin 3.0, Albumin/Globulin Ratio 1.3 11/27/21 01:05: Troponin I < 0.01 Result diagrams: 11/26/21 22:00 11/26/21 22:00 Orders (Tests/Meds): ED MEDICATIONS Generic Name Dose Route Start Last Admin Trade Name Freq PRN Reason Stop Dose Admin Sodium Chloride 1,000 mls @ 999 mls/hr 11/26/21 22:15 11/26/21 22:22 Sod Chlor 0.9% 1000ml Bag IV 11/26/21 23:15 999 mls/hr .Q1H1M NADEEM Administration Discontinued Medications Generic Name Dose Route Start Last Admin Trade Name Freq PRN Reason Stop Dose Admin Acetaminophen 1,000 mg 11/26/21 22:05 11/26/21 22:22 Acetaminophen 500mg Tab PO 11/26/21 22:06 1,000 mg ONCE ONE Administration Albuterol/Ipratropium 3 ml 11/26/21 22:04 11/26/21 22:10 Ipratropium/Albuterol 3 Ml Neb IH 11/26/21 22:05 3 ml ONCE ONE Administration Aspirin 324 mg 11/26/21 22:04 11/26/21 22:22 Aspirin 81mg Chewable Tablet PO 11/26/21 22:05 324 mg ONCE ONE Administration Methylprednisolone Sodium Succinate 125 mg 11/26/21 22:04 11/26/21 22:22 Methylprednisolone Sod Succ 125mg Vial IV 11/26/21 22:05 125 mg ONCE ONE Administration - Radiology Data #1 Image(s): Chest Image Reviewed: Yes I have reviewed radiologist's interpretation Preliminary Findings: Normal/NAD - ECG Data Tracing #
[2021-11-27 01:34] LABS: Troponin I < 0.01 ng/ml (0.00-0.034)
[2021-11-27 01:47] VITALS: BP 145/80; PULSE 82; RESP 18; TEMP 36.8; O2SAT 99
== END 2021-11-27 01:56 | disposition home or self-care (01) ==
PROVIDERS: Student in an Organized Health Care Education/Training Program; Emergency Provider Emergency Medicine; PCP Family Medicine
DX: I25.119 Atherosclerotic heart disease of native coronary artery with unspecified angina pectoris (principal); R07.9 Chest pain, unspecified; R05.9 Cough, unspecified; Z95.5 Presence of coronary angioplasty implant and graft; Z20.822 Contact with and (suspected) exposure to COVID-19
CPT/HCPCS: 71045; 80053; 84484; 85025; 93005; 99284; C9803; U0003; U0005

== ENCOUNTER 2022-07-04 09:18 | Emergency (ER) | payer BC, SELFPAY ==
--- NOTE | 2022-07-04 09:28 | EXP.UTC ---
Discharge Plan Disposition Patient Disposition: Home, Self-Care Condition: Good Prescriptions Prescriptions: New promethazine-DM 6.25-15 mg/5 mL Syrup 5 ml PO Q6H PRN (Reason: Cough) Qty: 240 0RF methylprednisolone 4 mg Tablets,Dose Pack 4 mg PO DIRECTED Qty: 21 0RF amoxicillin-pot clavulanate 875-125 mg Tablet 1 tab PO Q12H Qty: 20 0RF No Action lisinopril-hydrochlorothiazide 20-12.5 mg tablet 1 tab PO DAILY Label Comments: TAKE ONE TABLET BY MOUTH EVERY DAY azithromycin 250 MG tablet 250 mg PO UD DOSE PK Qty: 6 0RF Rx Instructions: Take two (2) tablets today, then one (1) tablet days #2 thru #5 methylprednisolone 4 MG tablets,dose pack 4 mg PO DIRECTED 6 Days Qty: 21 0RF ondansetron 4 MG tablet,disintegrating 4 mg PO Q8HP PRN (Reason: Nausea) Qty: 20 0RF aspirin 81 MG tablet,delayed release (DR/EC) 81 mg PO DAILY fluticasone propionate 120 SPR/BOT bottle 1 spr NS DAILY rosuvastatin 20 MG tablet 20 mg PO HS isosorbide mononitrate 30 MG tablet 30 mg PO DAILY Qty: 14 0RF Referrals Follow up/Referrals: Karmen Hernandez APRN [Primary Care Provider] - See instructions Activity Restrictions/Add. Instructions Additional Instructions/Restrictions: Drink plenty of fluids. Take tylenol or ibuprofen for pain or fever. Take the medications as directed. Follow up with your regular doctor. GO TO THE ER FOR ANY WORSENING SYMPTOMS Don't start the oral steroids until tomorrow, since you had the shot here today. The cough medication (promethazine dm) will make you drowsy, so don't drive or operate heavy machinery after taking it. Clinical Impressions Clinical Impression: Sinusitis, Otitis media Stand Alone Forms Stand Alone Forms: Work/School Release Instructions Patient Instructions: DI for Sinusitis Discharge ED Provider: Macario Mayes [facility] General Stated complaint: body aches, SAMUELS, cough Time Seen by Provider: 07/04/22 09:28 History of Present Illness Provider Complaint: He states that for the past 5 days she has had sinus congestion and chest congestion. Related Data Home Medications Medication Instructions Recorded Confirmed lisinopril 20 1 tab PO DAILY bp 10/19/19 11/09/20 mg-hydrochlorothiazide 12.5 mg tablet aspirin 81 mg tablet,delayed 81 mg PO DAILY thinner 10/19/20 11/09/20 release fluticasone propionate 50 1 spr NS DAILY allergies 10/19/20 11/09/20 mcg/actuation nasal spray,suspension rosuvastatin 20 mg tablet 20 mg PO HS hld 10/19/20 11/09/20 Previous Rx's Medication Instructions Recorded azithromycin 250 mg tablet 250 mg PO UD DOSE PK #6 tabs 05/07/21 methylprednisolone 4 mg tablets in 4 mg PO DIRECTED 6 days #21 05/07/21 a dose pack packets ondansetron 4 mg disintegrating 4 mg PO Q8HP PRN Nausea #20 tabs 05/07/21 tablet isosorbide mononitrate 30 mg 30 mg PO DAILY #14 tabs 11/27/21 tablet,extended release 24 hr amoxicillin 875 mg-potassium 1 tab PO Q12H #20 tabs 07/04/22 clavulanate 125 mg tablet methylprednisolone 4 mg tablets in 4 mg PO DIRECTED #21 tabs 07/04/22 a dose pack promethazine-DM 6.25 mg-15 mg/5 mL 5 ml PO Q6H PRN Cough #240 mL 07/04/22 oral syrup Allergies Allergy/AdvReac Type Severity Reaction Status Date / Time codeine [CODEINE] Allergy Mild Nausea Verified 07/04/22 09:46 hydrocodone [HYDROCODONE] Allergy Mild Nausea Verified 07/04/22 09:46 PFS PFS Disclaimer: The information contained in this section may have been updated after the patient was seen, as this information can be updated by other users. 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
[2022-07-04 09:40] VITALS: BP 130/82; PULSE 66; RESP 20; TEMP 36.9; O2SAT 97; BMI 38.6
[2022-07-04 10:46] VITALS: BP 130/82; PULSE 66; RESP 20; TEMP 36.9; O2SAT 97
== END 2022-07-04 10:46 | disposition home or self-care (01) ==
PROVIDERS: Emergency Provider Nurse Practitioner Family; PCP Nurse Practitioner Family
DX: J01.90 Acute sinusitis, unspecified (principal); H66.93 Otitis media, unspecified, bilateral; R05.1 Acute cough
CPT/HCPCS: 96372; 99212; 99214; G0463; J0696

== ENCOUNTER 2023-10-16 11:37 | Outpatient (CLI) | payer BC, SELFPAY ==
--- NOTE | 2023-10-16 11:43 | XR_ITS ---
FINAL REPORT CLINICAL HISTORY: right posterior hip pain FINDINGS: Three views of the right hip demonstrate no acute fracture or dislocation. There are mild degenerative changes. No soft tissue abnormality is seen. IMPRESSION: No acute bony abnormality. Reviewed, Interpreted and Dictated by Radha Correa MD Transcribed by Samantha Barney Authenticated and [facility]
== END 2023-10-16 23:59 | disposition home or self-care (01) ==
LOC: RAD 11:38
PROVIDERS: PCP Nurse Practitioner Family; Visit Provider Nurse Practitioner Family
DX: M25.551 Pain in right hip (principal)
CPT/HCPCS: 73502

== ENCOUNTER 2023-10-18 08:57 | Outpatient (CLI) | payer BC, SELFPAY ==
[2023-10-18 17:24] LABS: Alanine Aminotransferase 115 U/L (12-78); Albumin Level 4.5 g/dl (3.5-5.0); Albumin/Globulin Ratio 1.2 (1.1-1.8); Alkaline Phosphatase 113 U/L (38-126); Anion Gap 21.8 mEq/L (5-15); Aspartate Amino Transferase 94 U/L (17-59); Bilirubin,Total 1.4 mg/dl (0.2-1.3); Blood Urea Nitrogen 32 mg/dl (9-20); Calcium 10.5 mg/dl (8.4-10.2); Carbon Dioxide 19 mmol/L (22.0-30.0); Chloride 94 mmol/L (98-107); Estimated Glomerular Filt Rate 51 ml/min (>60); GFR (African American) 62 ML/MIN (>60); Globulin 3.7 g/dL (1.3-3.2); Glucose 338 mg/dl (74-100); HDL Cholesterol 36 mg/dl (40-60); Magnesium 1.4 mg/dl (1.6-2.3); Potassium 4.8 mmoL/L (3.5-5.1); Sodium 130 mmol/L (136-145); Total Protein,Serum 8.2 g/dl (6.3-8.2); Triglycerides 260 mg/dl (30-150); VLDL Cholesterol 52 mg/dL (0-40)
[2023-10-18 17:35] LABS: Direct LDL Cholesterol 274.68 mg/dL (100-129)
[2023-10-18 17:56] LABS: Thyroid Stimulating Hormone 4.27 uIU/mL (0.465-4.68)
[2023-10-18 18:12] LABS: Chol/HDL Ratio 9.5 (1-3.5); Cholesterol 342 mg/dl (140-200)
== END 2023-10-18 23:59 | disposition home or self-care (01) ==
LOC: LAB.DROPOF 10-21 08:59
PROVIDERS: PCP Nurse Practitioner Family; Visit Provider Nurse Practitioner Family
DX: E11.9 Type 2 diabetes mellitus without complications (principal)
CPT/HCPCS: 80053; 80061; 83735; 84443

== ENCOUNTER 2023-11-05 14:45 | Outpatient (CLI) | payer OTHER, SELFPAY ==
[2023-11-05 16:25] VITALS: BMI 33.7
== END 2023-11-05 23:59 | disposition home or self-care (01) ==
LOC: DIETICIAN 14:46
PROVIDERS: PCP Nurse Practitioner Family; Visit Provider Nurse Practitioner Family
DX: E11.9 Type 2 diabetes mellitus without complications (principal)
CPT/HCPCS: 97802

== ENCOUNTER 2023-11-06 16:51 | Outpatient (CLI) | payer OTHER, SELFPAY ==
[2023-11-06 17:49] LABS: Alanine Aminotransferase 205 U/L (12-78); Albumin Level 4.5 g/dl (3.5-5.0); Albumin/Globulin Ratio 1.2 (1.1-1.8); Alkaline Phosphatase 82 U/L (38-126); Anion Gap 15.9 mEq/L (5-15); Aspartate Amino Transferase 194 U/L (17-59); Bilirubin,Total 1.1 mg/dl (0.2-1.3); Blood Urea Nitrogen 14 mg/dl (9-20); Calcium 9.6 mg/dl (8.4-10.2); Carbon Dioxide 23 mmol/L (22.0-30.0); Chloride 106 mmol/L (98-107); Estimated Glomerular Filt Rate 114 ml/min (>60); GFR (African American) 138 ML/MIN (>60); Globulin 3.8 g/dL (1.3-3.2); Glucose 94 mg/dl (74-100); Magnesium 2.2 mg/dl (1.6-2.3); Potassium 4.9 mmoL/L (3.5-5.1); Sodium 140 mmol/L (136-145); Total Protein,Serum 8.3 g/dl (6.3-8.2)
[2023-11-09 08:21] LABS: HBsAg Screen Negative (Negative); HCV Ab Non Reactive (Non Reactive); Hep A Ab, IGM Negative (Negative); Hep B Core Ab, IgM Negative (Negative)
== END 2023-11-06 23:59 | disposition home or self-care (01) ==
LOC: LAB.DROPOF 16:51
PROVIDERS: PCP Nurse Practitioner Family; Visit Provider Nurse Practitioner Family
DX: E83.42 Hypomagnesemia (principal); E11.9 Type 2 diabetes mellitus without complications; R74.8 Abnormal levels of other serum enzymes
CPT/HCPCS: 80053; 80074; 83735

== ENCOUNTER 2023-11-15 08:12 | Outpatient (CLI) | payer OTHER, SELFPAY ==
--- NOTE | 2023-11-15 08:17 | US_ITS ---
FINAL REPORT TECHNIQUE: Multiple transverse and longitudinal images CLINICAL HISTORY: Elevated liver enzymes COMPARISON: None FINDINGS: The gallbladder is surgically absent. No biliary ductal dilatation is appreciated. No fluid collections are seen. There is diffuse increased echogenicity of the liver consistent with fatty infiltration. Limited portions of the right kidney are unremarkable. IMPRESSION: Prior cholecystectomy. No biliary ductal dilatation is identified. Fatty infiltration of the liver. Reviewed, Interpreted and Dictated by Radha Correa MD Transcribed by Marina Luna Authenticated and [facility]
== END 2023-11-15 23:59 | disposition home or self-care (01) ==
LOC: RAD 08:14
PROVIDERS: PCP Nurse Practitioner Family; Visit Provider Nurse Practitioner Family
DX: R74.8 Abnormal levels of other serum enzymes (principal)
CPT/HCPCS: 76705

== ENCOUNTER 2023-11-29 14:01 | Outpatient (CLI) | payer OTHER, SELFPAY ==
[2023-11-29 13:39] LABS: Albumin Level 4.4 g/dl (3.5-5.0)
[2023-11-29 13:42] LABS: Alanine Aminotransferase 120 U/L (12-78); Alkaline Phosphatase 83 U/L (38-126); Aspartate Amino Transferase 88 U/L (17-59); Bilirubin,Direct 0.3 mg/dl (0.0-0.4); Bilirubin,Indirect 0.2 mg/dL (0.0-0.9); Bilirubin,Total 0.5 mg/dl (0.2-1.3); Bilirubin,Unconjugated 0.2 mg/dL (0.0-1.1); Magnesium 2.1 mg/dl (1.6-2.3); Total Protein,Serum 7.8 g/dl (6.3-8.2)
== END 2023-11-29 23:59 | disposition home or self-care (01) ==
LOC: LAB.DROPOF 14:02
PROVIDERS: PCP Nurse Practitioner Family; Visit Provider Nurse Practitioner Family
DX: E83.42 Hypomagnesemia (principal); R74.8 Abnormal levels of other serum enzymes
CPT/HCPCS: 80076; 83735

== ENCOUNTER 2024-04-08 13:58 | Outpatient (CLI) | payer OTHER, SELFPAY ==
[2024-04-03 09:36] LABS: Hemoglobin A1C 5.5 % (4.0-6.0)
[2024-04-03 10:16] LABS: Alanine Aminotransferase 37 U/L (12-78); Albumin Level 4.3 g/dl (3.5-5.0); Albumin/Globulin Ratio 1.5 (1.1-1.8); Alkaline Phosphatase 69 U/L (38-126); Anion Gap 10.9 mEq/L (5-15); Aspartate Amino Transferase 40 U/L (17-59); Blood Urea Nitrogen 14 mg/dl (9-20); Calcium 9.4 mg/dl (8.4-10.2); Carbon Dioxide 26 mmol/L (22.0-30.0); Chloride 108 mmol/L (98-107); Chol/HDL Ratio 6.9 (1-3.5); Cholesterol 270 mg/dl (140-200); Estimated Glomerular Filt Rate 85 ml/min (>60); GFR (African American) 103 ML/MIN (>60); Globulin 2.9 g/dL (1.3-3.2); Glucose 114 mg/dl (74-100); HDL Cholesterol 39 mg/dl (40-60); Potassium 4.9 mmoL/L (3.5-5.1); Sodium 140 mmol/L (136-145); Total Protein,Serum 7.2 g/dl (6.3-8.2); Triglycerides 151 mg/dl (30-150); VLDL Cholesterol 30 mg/dL (0-40)
[2024-04-03 10:27] LABS: Direct LDL Cholesterol 202.45 mg/dL (100-129)
== END 2024-04-08 23:59 | disposition home or self-care (01) ==
LOC: LAB 13:59
PROVIDERS: PCP Nurse Practitioner Family; Visit Provider Nurse Practitioner Family
DX: R74.8 Abnormal levels of other serum enzymes (principal); E11.9 Type 2 diabetes mellitus without complications; E78.5 Hyperlipidemia, unspecified; E83.42 Hypomagnesemia; Z79.84 Long term (current) use of oral hypoglycemic drugs
CPT/HCPCS: 80053; 80061; 83036; 83735

== ENCOUNTER 2024-04-28 13:48 | Outpatient (CLI) | payer OTHER, SELFPAY ==
--- NOTE | 2024-04-28 13:54 | XR_ITS ---
FINAL REPORT CLINICAL HISTORY: Right lower back pain, fall on ice COMPARISON: None FINDINGS: 3 views of the lumbar spine were obtained. There is no evidence of fracture. There is no malalignment. Moderate facet sclerosis is noted in the lower lumbar spine. The remaining vertebra are normal in height. There is moderate disc space narrowing at L5-S1. No paraspinous soft tissue abnormalities identified. IMPRESSION: No acute bony abnormality. Reviewed, Interpreted and Dictated by Sumit Jain MD Transcribed by Shereen Chairez Authenticated and [facility]
--- NOTE | 2024-04-28 13:54 | XR_ITS ---
FINAL REPORT CLINICAL HISTORY: Right elbow injury, fall on ice COMPARISON: None FINDINGS: RIGHT ELBOW 3 views were obtained. There is no acute fracture or dislocation. There is no joint effusion. The joint spaces are intact. There is no soft tissue abnormality. IMPRESSION: No acute bony abnormality. Reviewed, Interpreted and Dictated by Sumit Jain MD Transcribed by Shereen Chairez Authenticated and [facility]
--- NOTE | 2024-04-28 13:54 | XR_ITS ---
FINAL REPORT CLINICAL HISTORY: Right hip injury, following ice COMPARISON: None FINDINGS: RIGHT HIP Two views of the right hip, including an AP view of the pelvis, demonstrate no acute fracture or dislocation. The joint spaces appear normal. The visualized bony structures are well aligned. No soft tissue abnormality is seen. IMPRESSION: No acute bony abnormality. Reviewed, Interpreted and Dictated by Sumit Jain MD Transcribed by Shereen Chairez Authenticated and [facility]
== END 2024-04-28 23:59 | disposition home or self-care (01) ==
LOC: RAD 13:51
PROVIDERS: PCP Nurse Practitioner Family; Visit Provider Nurse Practitioner Family
DX: M25.551 Pain in right hip (principal); M54.50 Low back pain, unspecified; M25.521 Pain in right elbow
CPT/HCPCS: 72100; 73080; 73502

== ENCOUNTER 2024-04-30 13:45 | Outpatient (CLI) | payer OTHER, SELFPAY ==
--- NOTE | 2024-04-30 13:47 | CT_ITS ---
FINAL REPORT TECHNIQUE: Axial CT images were performed through the head. Coronal reformatted images were submitted. This study was performed with techniques to keep radiation doses as low as reasonably achievable (ALARA). Individualized dose reduction techniques using automated exposure control or adjustment of mA and/or kV according to the patient's size were employed. CLINICAL HISTORY: Fell yesterday on ice and hit right side of head. LOC. Headache. COMPARISON: None FINDINGS: The ventricles are normal in size. There is no evidence of hemorrhage. There is no mass or edema identified. There is no abnormal extra-axial fluid seen. There is mild mucoperiosteal thickening in the maxillary sinuses bilaterally. IMPRESSION: No acute intracranial process. Mucoperiosteal thickening in the maxillary sinuses bilaterally. Reviewed, Interpreted and Dictated by Sumit Jain MD Transcribed by Marina Luna Authenticated and [facility]
== END 2024-04-30 23:59 | disposition home or self-care (01) ==
LOC: RAD 13:46
PROVIDERS: PCP Nurse Practitioner Family; Visit Provider Nurse Practitioner Family
DX: R51.9 Headache, unspecified (principal); R40.20 Unspecified coma; S09.90XA Unspecified injury of head, initial encounter
CPT/HCPCS: 70450

== ENCOUNTER 2024-07-22 14:20 | Outpatient (CLI) | payer OTHER, SELFPAY ==
[2024-07-22 16:59] LABS: Coronavirus 19, PCR Not Detected (NotDetected); Human Rhinovirus Not Detected (NotDetected); Influenza A, PCR Not Detected (NotDetected); Influenza B, PCR Not Detected (NotDetected); Respiratory Syncytial Virus Not Detected (NotDetected)
== END 2024-07-22 23:59 | disposition home or self-care (01) ==
LOC: LAB.DROPOF 07-23 09:54
PROVIDERS: PCP Nurse Practitioner Family; Visit Provider Nurse Practitioner Family
DX: R05.9 Cough, unspecified (principal)
CPT/HCPCS: 87631

== ENCOUNTER 2024-07-25 18:11 | Emergency (ER) | payer OTHER, SELFPAY ==
[2024-07-25 18:18] VITALS: BP 122/99; PULSE 72; O2SAT 97
[2024-07-25 18:20] VITALS: BP 175/105; PULSE 70; RESP 20; TEMP 36.7; O2SAT 99; BMI 34.2
[2024-07-25 18:40] VITALS: BP 163/93; PULSE 67; O2SAT 99
--- NOTE | 2024-07-25 18:46 | ED_ITS ---
Discharge Plan Disposition Patient Disposition: Home, Self-Care Condition: Good Prescriptions Prescriptions: No Action (DME) blood-glucose meter [Blood Glucose Monitoring] Kit See Rx Instructions .Route Qty: 1 0RF Rx Instructions: As directed TID (DME) lancets [Accu-Chek Softclix Lancets] Misc See Rx Instructions .ROUTE .MEDSUPPLY Qty: 100 Patient Comments: USE DIRECTED THREE TIMES DAILY Rx Instructions: As directed promethazine-DM 6.25-15 mg/5 mL syrup 5 ml PO Q4-6H PRN (Reason: cough) Qty: 118 0RF cyclobenzaprine 10 mg tablet 10 mg PO TID PRN (Reason: muscle spasm) Qty: 30 0RF tramadol 50 mg tablet 50 mg PO Q4H PRN (Reason: pain) Qty: 30 0RF magnesium glycinate 100 mg magnesium capsule See Rx Instructions .ROUTE .COMPLEX Qty: 60 2RF Dose Instruction: TAKE TWO CAPSULES BY MOUTH EVERY DAY Rx Instructions: TAKE TWO CAPSULES BY MOUTH EVERY DAY (DME) lancets [Accu-Chek Softclix Lancets] [facility] See Rx Instructions .ROUTE .COMPLEX Qty: 100 2RF Dose Instruction: USE DIRECTED THREE TIMES DAILY Rx Instructions: USE DIRECTED THREE TIMES DAILY (DME) Accu-Chek Guide test strips Strip See Rx Instructions .ROUTE .COMPLEX Qty: 50 2RF Dose Instruction: USE DIRECTED THREE TIMES DAILY Rx Instructions: USE DIRECTED THREE TIMES DAILY empagliflozin 25 mg tablet 25 mg PO DAILY Qty: 30 2RF metformin 500 mg tablet extended release 24 hr See Rx Instructions .ROUTE .COMPLEX Qty: 30 2RF Dose Instruction: TAKE ONE TABLET BY MOUTH EVERY DAY Rx Instructions: TAKE ONE TABLET BY MOUTH EVERY DAY lisinopril 20 mg tablet See Rx Instructions .ROUTE .COMPLEX Qty: 30 2RF Dose Instruction: TAKE ONE TABLET BY MOUTH EVERY DAY Rx Instructions: TAKE ONE TABLET BY MOUTH EVERY DAY aspirin 81 MG tablet,delayed release (DR/EC) 81 mg PO DAILY Referrals Follow up/Referrals: Karmen Hernandez APRN [Primary Care Provider] - See instructions Activity Restrictions/Add. Instructions Additional Instructions/Restrictions: Weightbearing as tolerated rest Ice with cold pack for 20 minutes remove may repeat for comfort every hour Ibuprofen and Tylenol every 4 hours as needed . Follow-up with PCP If symptoms worsen or do not improve return Clinical Impressions Clinical Impression: Low back pain Qualifiers: Chronicity: acute Back pain laterality: right Sciatica presence: with sciatica Sciatica laterality: sciatica of right side Qualified Code(s): M54.41 - Lumbago with sciatica, right side Instructions Patient Instructions: DI for Back Pain With Sciatica Print Language Print Language: Kyrgyz Discharge ED Provider: Nader Moore General Adult HPI <Misael Christianbrittney ([facility]), WARE TESTER - Last Filed: 07/25/24 19:59> General Chief complaint: PAIN Stated complaint: lower rt back pain radiating down leg Time Seen by Provider: 07/25/24 18:25 Mode of Arrival: Family Vehicle Source of Information: Patient, Spouse and Medical Record Description of Symptoms (Recalled from ER Triage Doc. by RN): Pt presents to ER with c/o pain to R hip that extends to R knee with movement. Denies any injury, trauma, or recent falls. States the pain has been severe for several days but has had problems with this hip for some time. He has seen his PCP who has prescribed tramadol & flexeril which has helped some. However, when pt goes from laying to standing position the pain is debilitating. No imaging has been completed yet. Denies any parathesia. Denies any loss of bowel or bladder. History of Present Illness HPI narrative: 64-year-old male presents for pain in the right hip that extends to the knee with movement. Patient denies any injury or any recent falls. Patient states has been going on for several days but he has had hip issues for a long time. Patient is been seeing his PCP who has prescribed tramadol and Flexeril states it did help some. Patient states he was sitting and it was time for his pain medicine and his muscle relaxer when he went to get up to go get the meds he was unable to apply weight to his hip and leg. Patient states no BM or bladder problems. Related Data Home Medications ?Medication ?Instructions ?Recorded ?Confirmed aspirin 81 mg tablet,delayed 81 mg PO DAILY thinner 10/19/20 07/22/24 release lancets (Accu-Chek Softclix #100 ea 10/28/23 07/22/24 Lancets) Previous Rx's ?Medication ?Instructions ?Recorded blood-glucose meter (Blood Glucose #1 ea 10/18/23 Monitoring kit) blood sugar diagnostic (Accu-Chek #50 strips 01/24/24 Guide test strips) empagliflozin 25 mg tablet 25 mg PO DAILY #30 tabs 01/24/24 lancets (Accu-Chek Softclix #100 ea 01/24/24 Lancets) magnesium glycinate See Rx Instructions .Route 01/24/24 .COMPLEX #60 caps metformin 500 mg tablet,extended See Rx Instructions .Route 04/10/24 release 24 hr .COMPLEX #30 tabs cyclobenzaprine 10 mg tablet 10 mg PO TID PRN muscle spasm #30 07/22/24 tabs promethazine-DM 6.25 mg-15 mg/5 mL 5 ml PO Q4-6H PRN cough #118 mL 07/22/24 oral syrup tramadol 50 mg tablet 50 mg PO Q4H PRN pain #30 tabs 07/22/24 lisinopril 20 mg tablet See Rx Instructions .Route 07/24/24 .COMPLEX #30 tabs Allergies Allergy/AdvReac Type Severity Reaction Status Date / Time No Known Allergies Allergy Verified 07/22/24 14:01 [facility] <Misael Esquivel ([facility]), WARE TESTER - Last Filed: 07/25/24 19:59> [facility] Disclaimer: The information contained in this section may have been updated after the patient was seen, as this information can be updated by other users. 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 current occupational exposures/hazards: Yes caffeine: Yes Have you lived/traveled outside [place] in past 30 days?: No Contact w/someone who lives/traveled outside US past 30 days?: No Exposure to someone with infectious disease in past 14 days?: No Do you have a fever (greater than 100.4 F or 38 C)?: No Have you tested positive for COVID-19: No Exposed to someone with COVID-19 in past 14 days?: No Do you have a sore throat?: No Do you have a cough?: No Do you have any weakness?: No Do you have any diarrhea?: No Are you experiencing any unusual bleeding?: No Do you have any muscle aches/pain?: No Do you have any abdominal pain?: No Are you experiencing loss of taste or smell?: No Other Medical History Have you received the Flu Vaccine for this season: No Have you received the Pneumonia Vaccine: No <Misael Esquivel ([facility]), WARE TESTER - Last Filed: 07/25/24 19:59> ROS Obtained: Yes Systems reviewed as appropriate & no additional complaints except as documented Musculoskeletal Musculoskeletal: Reports system reviewed and no additional complaints, except as documented, Reports as per HPI, Reports arthralgias, Reports limited range of motion, Reports muscle weakness and Reports radiating pain into limb Physical Exam <Misael Esquivel ([facility]), WARE TESTER - Last Filed: 07/25/24 19:59> General General appearance: alert and in no apparent distress Eye Eye exam: Present normal appearance and PERRL ENT ENT exam: Present normal exam Respiratory Respiratory exam: Present normal lung sounds bilaterally Cardiovascular Cardiovascular exam: Present regular rate and normal rhythm Back Exam Back 1 view image: 2 1. Pain Neurological Exam Neurological exam: Present alert and oriented X3 Skin Skin exam: Present warm and intact Medical Decision Making <Misael Esquivel ([facility]), WARE TESTER - Last Filed: 07/25/24 19:59> Medical Records Medical records reviewed: Yes I reviewed the patient's medical records. Screening: Per USPSTF and CDC recommendations, given the prevalence of disease in our region, it is our hospital?s policy to screen for HIV and viral Hepatitis for all patients aged 18 and over and those with ongoing risk factors. Jose Inquiry Pt receiving controlled substance: No Vital Signs: 07/25/24 18:18 07/25/24 18:20 07/25/24 18:40 Temperature 98.0 F Temperature Source Oral Pulse Rate 72 67 Pulse Rate [Right] 70 Respiratory Rate 20 Blood Pressure 122/99 H 163/93 H Blood Pressure [Right Arm] 175/105 H Blood Pressure Mean 131 Blood Pressure Mean [Right Arm] 128 Blood Pressure Source [Right Arm] Automatic Cuff 02 Sat by Pulse Oximetry 97 99 99 Oxygen Delivery Method Room Air 07/25/24 20:01 Temperature 98.1 F Temperature Source Pulse Rate 78 Pulse Rate [Right] Respiratory Rate 20 Blood Pressure 174/87 H Blood Pressure [Right Arm] Blood Pressure Mean Blood Pressure Mean [Right Arm] Blood Pressure Source [Right Arm] 02 Sat by Pulse Oximetry Oxygen Delivery Method Room Air Orders (Tests/Meds): ED MEDICATIONS Discontinued Medications Generic Name Dose Route Start Last Admin Trade Name Papito PRN Reason Stop Dose Admin Dexamethasone Sodium Phosphate 10 mg 07/25/24 18:32 07/25/24 18:46 Dexamethasone 4mg/Ml 1ml Vial IV 07/25/24 18:33 Not Given ONCE ONE Dexamethasone Sodium Phosphate 10 mg 07/25/24 18:32 07/25/24 18:49 Dexamethasone 4mg/Ml 1ml Vial IM 07/25/24 18:33 10 mg ONCE ONE Administration Lidocaine 1 each 07/25/24 18:32 07/25/24 18:50 Lidocaine 5% Transdermal Patch TD 07/25/24 18:33 1 each ONCE ONE Administration Methocarbamol 1,500 mg 07/25/24 18:32 07/25/24 18:50 Methocarbamol 500mg Tablet PO 07/25/24 18:33 1,500 mg ONCE ONE Administration Medical Decision Narrative: In summary patient is a 64-year-old male who presents to the emergency department for evaluation of hip pain that radiates down leg. Patient is hemodynamically stable upon arrival, afebrile. Tender at the sciatic of the right buttocks. Differential diagnosis includes sciatica, low back pain. Initial inventions include IM steroids and Robaxin. Upon repeat evaluation patient is able to sit up stand and walk without pain. Given this patient appropriate for discharge will discharge home with prednisone. Follow-up with PCP this week <Nader Moore MD - Last Filed: 07/25/24 22:32> Vital Signs: 07/25/24 18:18 07/25/24 18:20 07/25/24 18:40 Temperature 98.0 F Temperature Source Oral Pulse Rate 72 67 Pulse Rate [Right] 70 Respiratory Rate 20 Blood Pressure 122/99 H 163/93 H Blood Pressure [Right Arm] 175/105 H Blood Pressure Mean 131 Blood Pressure Mean [Right Arm] 128 Blood Pressure Source [Right Arm] Automatic Cuff 02 Sat by Pulse Oximetry 97 99 99 Oxygen Delivery Method Room Air 07/25/24 20:01 Temperature 98.1 F Temperature Source Pulse Rate 78 Pulse Rate [Right] Respiratory Rate 20 Blood Pressure 174/87 H Blood Pressure [Right Arm] Blood Pressure Mean Blood Pressure Mean [Right Arm] Blood Pressure Source [Right Arm] 02 Sat by Pulse Oximetry Oxygen Delivery Method Room Air Orders (Tests/Meds): ED MEDICATIONS Discontinued Medications Generic Name Dose Route Start Last Admin Trade Name Papito PRN Reason Stop Dose Admin Dexamethasone Sodium Phosphate 10 mg 07/25/24 18:32 07/25/24 18:46 Dexamethasone 4mg/Ml 1ml Vial IV 07/25/24 18:33 Not Given ONCE ONE Dexamethasone Sodium Phosphate 10 mg 07/25/24 18:32 07/25/24 18:49 Dexamethasone 4mg/Ml 1ml Vial IM 07/25/24 18:33 10 mg ONCE ONE Administration Lidocaine 1 each 07/25/24 18:32 07/25/24 18:50 Lidocaine 5% Transdermal Patch TD 07/25/24 18:33 1 each ONCE ONE Administration Methocarbamol 1,500 mg 07/25/24 18:32 07/25/24 18:50 Methocarbamol 500mg Tablet PO 07/25/24 18:33 1,500 mg ONCE ONE Administration Medical Decision Narrative: In summary patient is a 64-year-old male who presents to the emergency department for evaluation of hip pain that radiates down leg. Patient is hemodynamically stable upon arrival, afebrile. Tender at the sciatic of the right buttocks. Differential diagnosis includes sciatica, low back pain. Initial inventions include IM steroids and Robaxin. Upon repeat evaluation patient is able to sit up stand and walk without pain. Given this patient appropriate for discharge will discharge home with prednisone. Follow-up with PCP this week I was consulted by the BETO, and we discussed the complexity of the problems being addressed. I approved the treatment and management plan for this patient's care in the Emergency Department, thus performing a substantive portion of the medical decision making. Nader Moore MD Critical Care <Misael Esquivel ([facility]), WARE TESTER - Last Filed: 07/25/24 19:59> Critical Care Time Critical Care Time: No
[2024-07-25] MEDS: DEXAMETHASONE 4MG/ML 1ML VIAL 10 MG IM (18:49)
[2024-07-25] MEDS: METHOCARBAMOL 500MG TABLET 1500 MG PO (18:50)
[2024-07-25] MEDS: LIDOCAINE 5% TRANSDERMAL PATCH 1 EACH TD (18:50)
[2024-07-25 20:01] VITALS: BP 174/87; PULSE 78; RESP 20; TEMP 36.7; O2SAT 98
== END 2024-07-25 20:03 | disposition home or self-care (01) ==
PROVIDERS: Emergency Provider Emergency Medicine; PCP Nurse Practitioner Family
DX: M54.41 Lumbago with sciatica, right side (principal); M25.551 Pain in right hip; M25.561 Pain in right knee
CPT/HCPCS: 96372; 99283; J1100

== ENCOUNTER 2024-08-28 16:40 | Outpatient (CLI) | payer OTHER, SELFPAY ==
--- NOTE | 2024-08-28 17:15 | MR_ITS ---
PROCEDURE INFORMATION: Exam: MR Lumbar Spine Without Contrast Exam date and time: 08/28/2024 5:10 PM Age: 64 years old Clinical indication: Lumbago with sciatica; Right leg pain , tingling, numbness and burning; Additional info: Lbp with right sided radiculopathy TECHNIQUE: Imaging protocol: Magnetic resonance imaging of the lumbar spine without contrast. COMPARISON: CR XR LUMBAR SPINE 2-3V 04/28/2024 1:56 PM FINDINGS: Bones/joints: Vertebral body heights are preserved. There is straightening of the lumbar lordosis. Overall marrow signal is within normal limits. Spondylosis is present with disc bulging and facet arthropathy ligament thickening. Spinal cord: Visualized cord, conus medullaris and cauda equina are unremarkable without compression. L1-L2: At L1-L2 there is facet arthropathy and minor disc bulging. There is minor canal narrowing but no significant neural foraminal stenosis. L2-L3: At L2-L3 there is facet arthropathy and a small left lateral protrusion. There is no significant canal narrowing and mild left neural foraminal stenosis. L3-L4: At L3-L4 there is facet arthropathy ligament thickening with mild disc bulging and a left lateral protrusion. There is [id number] canal narrowing and minor neural foraminal stenosis. L4-L5: At L4-L5 there is disc bulging with ligamentous thickening and facet arthropathy and a superimposed right paracentral disc extrusion. There is moderate to severe canal narrowing most notably impinging upon the right lateral recess deflecting traversing and exiting nerve roots. There is mild right-sided and moderate severe left-sided neural foraminal narrowing. L5-S1: At L5-S1 there is no significant canal narrowing. A left lateral protrusion with facet arthropathy causes moderate neural foraminal narrowing on that side. Soft tissues: Unremarkable. IMPRESSION: Lumbar spondylosis as noted.
== END 2024-08-28 23:59 | disposition home or self-care (01) ==
LOC: RAD 16:41
PROVIDERS: PCP Nurse Practitioner Family; Visit Provider Nurse Practitioner Family
DX: M47.26 Other spondylosis with radiculopathy, lumbar region (principal)
CPT/HCPCS: 72148

== ENCOUNTER 2024-10-02 14:04 | Outpatient (POV) | payer OTHER, SELFPAY ==
[2024-10-02 14:22] VITALS: BP 129/80; PULSE 75; RESP 18; O2SAT 94; BMI 35.4
--- NOTE | 2024-10-02 14:44 | EXP.PAIN.OV ---
HPI Data of Consult Patient: new to practice Consult date: 10/02/24 Requesting Physician: Radha Garcia APRN Primary Care Provider: Karmen Hernandez APRN Reason for consult: Low back pain, right hip pain, right leg pain History of present illness: Mr. Cabrera is a 64 year old male who presents today as a new patient. He rates his pain today currently 3 out of 10 however does state with any increased activity it will go to a 10 out of 10. Patient states he has been dealing with this pain for longer than 4 months unrelated to any specific trauma or injury. He does state that initially he was doing yard work and it did seem like the next day that he started to have increased issues. Patient denies any radiating symptoms down to his left leg however does state the right goes all the way to his ankle. He does describe it overall as a constant sensation that is aching, throbbing, numbness and tingling. He does state it interferes with his ability perform activities of daily living such as cooking and cleaning. Patient does state it is affecting his sleeping and that he cannot lay prone due to the worsening pain. Patient does have 1 spot in his buttocks that always seems to be more irritated along the right side. Patient has tried oral medications such as Tylenol along with heat and ice and topicals with minimal relief. Patient has been tried on baclofen, diclofenac and tramadol and states some of them helped but others not so much. Patient has also tried pain patches with minimal changes. Patient has been seeing physical therapy however has not yet noticed any additional improvement. Patient denies any previous injection or back surgery. Patient did have updated advanced imaging and states that his primary care did discuss that he may need to have surgery. Patient states he would like to avoid this at all cost. He does have diabetes. His Jose has been reviewed and is appropriate. Pain at rest (0-10 scale): 10 Has patient had previous pain injection?: No Conservative treatment options previously tried: NSAIDS (Longer than 12 weeks), Home exercise plan (Longer than 12 weeks), Physical Therapy (Ongoing) and Prescription medications (Longer than 12 weeks) cc:: CC: Radha Garcia APRN [facility] Disclaimer: The information contained in this section may have been updated after the patient was seen, as this information can be updated by other users. 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 current occupational exposures/hazards: Yes caffeine: Yes Review of Systems Review of Systems Review of systems:: pertinent systems reviewed and negative unless documented below Review of systems (narrative): Review of Systems: General: No recent weight changes, no fever, no sleep disturbances Respiratory: No cough, no shortness of air, no recurring pulmonary infections Cardiovascular/peripheral vascular: No chest pain, no palpitations, no edema, no shortness of breath Gastrointestinal: No new onset incontinence, normal bowel movements reported Genitourinary: No new onset incontinence Musculoskeletal: Low back pain, right hip pain, right leg pain, right buttocks pain Psychiatric: [Normal mood/affect] Neurological: [Denies weakness in extremities], [denies balance issues] Meds Home Medications and Allergies Home Medications ?Medication ?Instructions ?Recorded ?Confirmed ?Type aspirin 81 mg tablet,delayed 81 mg PO DAILY thinner 10/19/20 10/02/24 History release blood-glucose meter (Blood Glucose #1 ea 10/18/23 10/02/24 Rx Monitoring kit) lancets (Accu-Chek Softclix #100 ea 10/28/23 10/02/24 History Lancets) blood sugar diagnostic (Accu-Chek #50 strips 01/24/24 10/02/24 Rx Guide test strips) empagliflozin 25 mg tablet 25 mg PO DAILY #30 tabs 01/24/24 10/02/24 Rx lancets (Accu-Chek Softclix #100 ea 01/24/24 10/02/24 Rx Lancets) metformin 500 mg tablet,extended See Rx Instructions .Route 04/10/24 10/02/24 Rx release 24 hr .COMPLEX #30 tabs lisinopril 20 mg tablet See Rx Instructions .Route 07/24/24 10/02/24 Rx .COMPLEX #30 tabs lidocaine 5 % topical patch 1 patch topical DAILY PRN pain 30 07/27/24 10/02/24 Rx (Lidoderm) days #30 ea duloxetine 30 mg capsule,delayed 30 mg PO DAILY #30 caps 09/11/24 10/02/24 Rx release pregabalin 75 mg capsule 75 mg PO BID 30 days #60 caps 09/11/24 10/02/24 Rx baclofen 10 mg tablet 10 mg PO HS PRN muscle spasms #30 09/25/24 10/02/24 Rx tabs diclofenac sodium 75 mg 75 mg PO BID PRN pain #60 tabs 09/25/24 10/02/24 Rx tablet,delayed release tramadol 50 mg tablet 50 mg PO Q4H PRN pain #30 tabs 09/25/24 10/02/24 Rx New Prescriptions to Start Prescriptions: Allergies Allergy/AdvReac Type Severity Reaction Status Date / Time No Known Allergies Allergy Verified 09/25/24 10:46 Objective Vital signs: Pulse Resp BP Pulse Ox O2 Del Method 75 18 129/80 94 L Room Air 10/02/24 14:22 10/02/24 14:22 10/02/24 14:22 10/02/24 14:22 10/02/24 14:22 Narrative: Physical Exam: General: Alert and oriented x3, no acute distress, pleasant and cooperative Lungs: Respirations even and unlabored, symmetrical chest expansion Eyes: PERRL Musculoskeletal: Flexion and extension of lumbar [spine] somewhat guarded secondary to pain, [antalgic gait noted] positive right leg rise and point tenderness along right piriformis muscle Neurological: Speech clear, no gross sensory deficit Additional findings Additional findings: FINDINGS: Bones/joints: Vertebral body heights are preserved. There is straightening of the lumbar lordosis. Overall marrow signal is within normal limits. Spondylosis is present with disc bulging and facet arthropathy ligament thickening. Spinal cord: Visualized cord, conus medullaris and cauda equina are unremarkable without compression. L1-L2: At L1-L2 there is facet arthropathy and minor disc bulging. There is minor canal narrowing but no significant neural foraminal stenosis. L2-L3: At L2-L3 there is facet arthropathy and a small left lateral protrusion. There is no significant canal narrowing and mild left neural foraminal stenosis. L3-L4: At L3-L4 there is facet arthropathy ligament thickening with mild disc bulging and a left lateral protrusion. There is [id number] canal narrowing and minor neural foraminal stenosis. L4-L5: At L4-L5 there is disc bulging with ligamentous thickening and facet arthropathy and a superimposed right paracentral disc extrusion. There is moderate to severe canal narrowing most notably impinging upon the right lateral recess deflecting traversing and exiting nerve roots. There is mild right-sided and moderate severe left-sided neural foraminal narrowing. L5-S1: At L5-S1 there is no significant canal narrowing. A left lateral protrusion with facet arthropathy causes moderate neural foraminal narrowing on that side. Soft tissues: Unremarkable. IMPRESSION: Lumbar spondylosis as noted. Assessment and Plan *Assessment and plan (1) Lower back injury: Status: Acute Category: Medical Code(s): S39.92XA - Unspecified injury of lower back, initial encounter (2) Lumbar radiculopathy: Status: Acute Category: Medical Code(s): M54.16 - Radiculopathy, lumbar region (3) Piriformis syndrome of right side: Status: Acute Category: Medical Code(s): G57.01 - Lesion of sciatic nerve, right lower limb Plan Patient is experiencing worsening pain in his low back with numbness and tingling into his right extremity. Patient did have limited range of motion of his lumbar spine with a positive right leg raise. I did discuss with patient that I do believe they would benefit from a lumbar epidural steroid injection. Patient did also have point tenderness along his right piriformis muscle however with his overall symptoms being more radicular in nature I have recommended that we try an epidural first. Risk and benefits were discussed with patient and the patient would like to proceed forward with this plan of care. Patient is not on any blood thinners. Patient has tried and failed conservative therapy including oral medications, heat and ice, topicals ongoing physical therapy and continued at home stretching exercise for longer than 12 weeks that is physician guided. Patient has had chronic back pain for longer than 4 months. Patient has not had any injections in the past to compare to. Patient did have significant narrowing with possible nerve impingement at the L4-L5 level. We will plan on doing the injection at this location. I will also order the patient compounded cream. We will schedule the patient for an LESI L4-L5 under fluoroscopy. Patient has been instructed to contact the clinic with any concerns before the next appointment. Dr. Ramirez has reviewed this note and agrees with this plan of care. This note was dictated using voice recognition software and make contain errors or omissions. All injections are used with Lidocaine, Bupivacaine and dexamethasone. Occasionally urine drug screen is needed to verify patient's compliance with our office pain contract. This is ordered based off specific treatments related to chronic pain with the potential to abuse certain medications.
== END 2024-10-02 23:59 | disposition home or self-care (01) ==
LOC: SC.PAIN 14:05
PROVIDERS: PCP Nurse Practitioner Family; Visit Provider Nurse Practitioner Family
DX: S39.92XA Unspecified injury of lower back, initial encounter (principal); G57.01 Lesion of sciatic nerve, right lower limb; X58.XXXA Exposure to other specified factors, initial encounter; Y93.9 Activity, unspecified; Y92.9 Unspecified place or not applicable; Z79.1 Long term (current) use of non-steroidal anti-inflammatories (NSAID); Z79.899 Other long term (current) drug therapy
CPT/HCPCS: 99202; G0463

== ENCOUNTER 2024-10-08 14:00 | Outpatient (RCR) | payer OTHER, SELFPAY ==
--- NOTE | 2024-09-25 15:31 | HMH.PTOPEV ---
PT Outpatient Evaluation Rehab PT Outpatient Evaluation Start: 09/25/24 13:49 Freq: Status: Active Protocol: Document 09/25/24 13:50 CHRIS (Rec: 09/25/24 15:30 CHRIS [id number]) E-signed By Mesha Don, PT Outpatient Therapy Subjective History Subjective History This is an initial PT evaluation for 64 y/o male, Nino Cabrera, who presents with referral for budging discs, lumbar radiculopathy, and acute lower back injury. Pt reports his pain started at least 3 months ago the day after working with a rototiller. Pt reports his pain is overall improving but he still is unable to tolerate getting up from supine or prone. Pt reports he is unable to get up without extreme pain in R LE and reports he will not lay down during evaluation d/t pain severity. Pt reports he has 4 budging discs and one degenerative disc. Pt has an appointment with pain management next week. Pt has seen his PCP who prescribed tramadol & flexeril which he reports some relief in symptoms. Pt uses TENS, stretches, tennis ball massage, ice, and, heat but reports minimal relief reported. Pt reports his pain never fully goes away but is tolerable once he gets moving. Chief complaint: R-sided shooting pain from hip to ankle. Pt does report numbness and tingling. Denies LBP . Pain starts in R buttock/hip. Denies pain in groin. Denies saddle anesthesia or bowel/bladder changes. 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 MRI lumbar 08/28: Lumbar spondylosis as noted. Bulging discs noted. New diagnosis of No cancer in past 12 months? Chief Complaint Pain,Paresthesia Symptom Type Shooting Symptoms Relieved By Rest/Positioning,Heat,Ice,Activity Symptoms Aggravated Prone,Supine,Standing,Bending/Stooping,Physical By Activity,Twisting,Lifting Prior Functional None Limitations Current Functional Reaching,Lifting,Driving,Sleeping,Standing,Sitting, Limitations Squatting,Recreation Activity,Walking Symptom Description Constant but Variable Level of pain today 3 (0-10) Pain scale - at its 3 best (0-10) Pain scale - at its 10 worst (0-10) Lumbopelvic Eval Posture Thoracic Spine Flattened Posture Standing Position Lumbar Spine Posture Flattened Standing Position Assistive device Assistive Devices None / NA Gait Observation General Gait Pattern Antalgic Gait Observation Palapation tenderness right thoracic spinal No tenderness lumbar spinal No tenderness paraspinal Yes: 1/4 TTP tenderness buttock tenderness Yes: 2/4 TTP R glutes/piriformis Lumbar/Sacral Tenderness Palpation Findings Accessory Movement L-spine Vertebrae Right P/A [place] Accessory Movements that Elicit Symptoms L3 right L4 right L5 right Range of Motion Lumbar Spine Active 75%, painful Flexion Range of Motion (degrees) Lumbar Spine Active 50%, painful Extension Range of Motion (degrees) Left Lumbar Spine 75%, non-painful Lateral Flexion Active Range of Motion (degrees) Right Lumbar Spine 25%, painful Lateral Flexion Active Range of Motion (degrees) Lumbar Spine ROM Pain Limitations Manual Muscle Test Right Knee Extension 5 Normal Strength Grade Knee Flexion 5 Normal Strength Grade Hip Flexion Strength 5 Normal Grade Hip Abduction 5 Normal Strength Grade Hip Adduction 5 Normal Strength Grade Altered Sensation Comment RLE sensation intact to light touch Special Tests Lumbar Spine Screen Positive Forward Bending Test Positive Right - Standing Hip Dony (FRANTZ) Negative Right Test Hip Piriformis Test Positive Right Sciatic Nerve Positive Right Tension Test Sacroiliac Joint Negative Right Compression Test Oswestry Index Section 1 Pain Intensity The pain comes and goes and is severe Section 2 Personal Care ( increase the pain and I find it necessary to change my Washing,[place]) way of doing it Section 3 Lifting lifting heavy weights off the floor, but I can manage if they are Section 4 Walking I cannot walk more than 1/2 mile without increasing pain Section 5 Sitting I can sit in my favorite chair for as long as I like Section 6 Standing I cannot stand more than 1 hour without increasing pain Section 7 Sleeping Because of my pain, my normal night's sleep is less than 6 hours sleep Section 8 Social Life Pain has restricted my social life and I do not go out often Section 9 Traveling I get extra pain while traveling, but it does not compel me to seek al Section 10 Changing Degreee of My pain seems to be getting better, but improvement is Pain slow Score and Risk Level Oswestry Sc 25 Oswestry Risk Level Severe Disability Miscellaneous Dx PT Eval Objective Objective Slump test: + for sciatic nerve involvement. Miscellaneous Goals Short Term Goals STG: In 4 weeks, pt will: 1) Decrease glute/piriformis TTP to 1/4 to decrease symptom irritability 2) Verbalize IND with HEP. 3) Verbalize feeling at least 45% improved since initial evaluation 4) Demo supine<>sitting EOB with <5/10 pain reported. 5) Improve Oswestry to score of 23 to improve QOL and decrease LBP 6) Verbalize 48 hour pain average (worst, best, current ) of 4/10 pain to improve symptom severity. Flight Security Specialist Goals LTG: In 8 weeks, pt will: 1) Decrease glute/piriformis TTP to 0/4 to decrease symptom irritability 2) Verbalize adherence to HEP. 3) Verbalize feeling at least 90% improved since initial evaluation 4) Improve Oswestry to score reflecting minimal disability 5) Demo one supine<>sitting EOB with good body mechanics and no increase in RLE pain. 6) Verbalize 48 hour pain average (worst, best, current ) of 2/10 pain to improve symptom severity and QOL. Outpatient Therapy Assessment Impairments Problems/ Palpation Tenderness,Impaired Range of Motion,Impaired Impairmments Strength,Impaired Endurance,Impaired Transfers,Impaired Gait Pattern,Impaired Walking,Impaired Standing, Impaired Driving,Impaired Lifting,Impaired Household Care,Impaired Stair Climbing,Impaired Incline Stepping, Impaired Stepping on Uneven Surface,Impaired Squatting, Impaired Bending,Impaired Recreational Activities, Impaired Work Activities,Subjective C/O Pain Prognosis Rehab Potential Good Clinical Impression Consistent with Yes Diagnosis Additional details: Objective measures limited d/t pt's inability/pleasant refusal to lay supine d/t fear of severe pain. Palpation, accessory movements, and sciatic nerve testing all performed in standing or sitting per pt's request to not lay on evaluation table. Pt demo'd tender R glute musculature and his chief complaint of pain was produced by the slump test for sciatic nerve involvement. PT provided pt with HEP consisting of seated and standing stretches to target HS stretching, piriformis stretching, self piriformis massage, and lumbar AROM. Pt demo'd understanding. Pt would benefit from skilled OP PT to address deficits. Outpatient Therapy Plan of Care Treatment Plan May Include Therapeutic Exercise Yes Including Home Exercise Program Manual Therapy Yes Techniques Therapeutic Yes Activities to Return to Previous Functional/Work Level Gait Training Yes ADL/Self Care Yes Education Mechanical Traction Yes Dry Needling Yes Thermal Modalities Yes Electrical Yes Stimulation Ultrasound/ Yes Phonophoresis Iontophoresis Yes Orthotics/Bracing/ Yes Splinting Massage Yes Eval/Re-Eval Yes Aquatic Therapy Yes Frequency Times per week 2-3 x weekly Duration Number of Weeks 6-8 weeks Addendums This patient is a No candidate for social or vocational rehab ? Patient/Guardian Yes verbally acknowledges understanding of treatment program and consents to further treatment? Patient/Guardian Yes verbally acknowledges understanding of diagnosis, prognosis and goals for treatment? Eval Complexity PT Charges 71688 - Moderate Complexity Shoulder/Elbow Eval Shoulder Objective Measurements Elbow Objective Measurements PHYSICIAN CERTIFICATION: I certify the specified therapy services for Nino Cabrera are required, authorized, and reviewed every 30 days.
== END 2024-10-08 23:59 | disposition home or self-care (01) ==
LOC: PT 14:00
PROVIDERS: PCP Nurse Practitioner Family; Visit Provider Nurse Practitioner Family
DX: S39.92XA Unspecified injury of lower back, initial encounter (principal); M51.369 Other intervertebral disc degeneration, lumbar region without mention of lumbar back pain or lower extremity pain; M54.16 Radiculopathy, lumbar region
CPT/HCPCS: 97110; 97162

== ENCOUNTER 2024-10-27 14:54 | Day surgery (SDC) | payer OTHER, SELFPAY ==
[2024-10-27 15:06] VITALS: BP 146/78; PULSE 57; RESP 16; O2SAT 98; BMI 35.8
--- NOTE | 2024-10-27 15:29 | EXP.PAIN.PRO ---
Procedure Date: 10/27/24 Time: 15:15 Anesthesiologist:: Dony Moscoso CRNA Complications:: None Pre-procedure Diagnosis:: Degenerative disc lumbar spine multilevels. Lumbar radiculopathy. Post-procedure Diagnosis:: Same. Indications for Procedure:: Patient is a very pleasant 64-year-old male who comes our clinic today for lumbar epidural steroid injection. Patient describes low lumbar back pain as well as bilateral hip and leg radicular symptoms as constant, dull, aching, intermittent. He rates his pain 7/10. Procedure Details:: Procedure: Lumbar epidural steroid injection under fluoroscopy Informed consent was obtained and the risks and benefits of the procedure were explained to the patient. The patient was taken to the procedure room and noninvasive monitors placed, including noninvasive blood pressure cuff and pulse oximeter. The back was viewed using C-arm Fluoroscopy and prepped using Chloraprep as a cleansing solution and the L4-L5 interspace was palpated. Skin and subcutaneous tissues were anesthetized using lidocaine 1.5% and a 25-gauge needle. After this, an 18-gauge Touhy epidural needle was placed into the L4-L5 interspace and advanced using fluoroscopic guidance and loss of resistance to air until the epidural space was encountered. After confirmation of needle placement in the epidural space, with dye, a solution containing normal saline, 3 mL and dexamethasone 10 mg were incrementally injected into the lumbar epidural space. The patient tolerated the procedure well with no complications. The patient was observed in the Pain Clinic and then discharged home neurologically intact. Plan and Disposition:: Patient was discharged without incident.
[2024-10-27 15:31] VITALS: BP 153/71; PULSE 55; RESP 18; O2SAT 96
[2024-10-27] MEDS: DEXAMETHASONE 10MG/ML 1ML VIAL 10 MG (15:31)
[2024-10-27 15:32] VITALS: BP 151/90; PULSE 55; RESP 18; O2SAT 96
[2024-10-27 15:33] VITALS: BP 151/90; PULSE 55; RESP 18; O2SAT 96
== END 2024-10-27 15:31 | disposition home or self-care (01) ==
PROVIDERS: PCP Nurse Practitioner Family; Visit Provider Nurse Anesthetist, Certified Registered
DX: M51.16 Intervertebral disc disorders with radiculopathy, lumbar region (principal); M47.26 Other spondylosis with radiculopathy, lumbar region; G57.01 Lesion of sciatic nerve, right lower limb; M25.552 Pain in left hip; M25.551 Pain in right hip; E11.9 Type 2 diabetes mellitus without complications; I25.10 Atherosclerotic heart disease of native coronary artery without angina pectoris; E78.5 Hyperlipidemia, unspecified; I10 Essential (primary) hypertension; Z87.891 Personal history of nicotine dependence; Z79.82 Long term (current) use of aspirin; Z79.84 Long term (current) use of oral hypoglycemic drugs; Z79.899 Other long term (current) drug therapy
CPT/HCPCS: 64483; J1100

== ENCOUNTER 2024-11-12 13:36 | Outpatient (POV) | payer OTHER, SELFPAY ==
[2024-11-12 14:55] VITALS: BP 154/73; BP 154/86; PULSE 55; RESP 14; O2SAT 97; BMI 35.6
--- NOTE | 2024-11-12 16:09 | EXP.PAIN.SOA ---
[facility] Disclaimer: The information contained in this section may have been updated after the patient was seen, as this information can be updated by other users. 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 Today he rates his pain a 7 out of 10. He denies any new trauma or injury. He does state that he had about 50% relief following his lumbar injection on 10/27/2024 however it seemed very short-lived. He does state today that the pain feels like it has moved compared to what it was previously. He did complain more at his last visit that it was radiating down primarily the right leg however today he feels like it is more in and around his right hip on the outer side and into his buttocks. Patient does state the pain is constant and does interfere with his ability to perform activities of daily living such as cooking and cleaning. Patient does state with the injection that he previously had he has been able to start doing the water aerobics again whereas before he was not able to do this however it is still very bothersome and he would like to see if we can do something for this ongoing pain in and around his hip. We did order the patient compounded cream at his last visit. His Jose has been reviewed and is appropriate. Review of Systems: General: No recent weight changes, no fever, no sleep disturbances Respiratory: No cough, no shortness of air, no recurring pulmonary infections Cardiovascular/peripheral vascular: No chest pain, no palpitations, no edema, no shortness of breath Gastrointestinal: No new onset incontinence, normal bowel movements reported Genitourinary: No new onset incontinence Musculoskeletal: Right buttocks pain, right hip pain Psychiatric: [Normal mood/affect] Neurological: [Denies weakness in extremities], [denies balance issues] Pain at rest (0-10 scale): 7 Objective Objective:: Physical Exam: General: Alert and oriented x3, no acute distress, pleasant and cooperative Lungs: Respirations even and unlabored, symmetrical chest expansion Eyes: PERRL Musculoskeletal: Flexion and extension of right hip somewhat guarded secondary to pain, [antalgic gait noted] point tenderness along right greater trochanteric bursa and right piriformis muscle Neurological: Speech clear, no gross sensory deficit Has patient had previous pain injection?: Yes Percent improvement in pain since last injection: 50% Conservative treatment options previously tried: Home exercise plan Length of treatment: Longer than 12 weeks Meds Home Medications and Allergies Home Medications ?Medication ?Instructions ?Recorded ?Confirmed ?Type aspirin 81 mg tablet,delayed 81 mg PO DAILY thinner 10/19/20 11/12/24 History release blood-glucose meter (Blood Glucose #1 ea 10/18/23 11/12/24 Rx Monitoring kit) lancets (Accu-Chek Softclix #100 ea 10/28/23 11/12/24 History Lancets) blood sugar diagnostic (Accu-Chek #50 strips 01/24/24 11/12/24 Rx Guide test strips) empagliflozin 25 mg tablet 25 mg PO DAILY #30 tabs 01/24/24 11/12/24 Rx lancets (Accu-Chek Softclix #100 ea 01/24/24 11/12/24 Rx Lancets) metformin 500 mg tablet,extended See Rx Instructions .Route 04/10/24 11/12/24 Rx release 24 hr .COMPLEX #30 tabs lisinopril 20 mg tablet See Rx Instructions .Route 07/24/24 11/12/24 Rx .COMPLEX #30 tabs duloxetine 30 mg capsule,delayed 30 mg PO DAILY #30 caps 09/11/24 11/12/24 Rx release baclofen 10 mg tablet 10 mg PO HS PRN muscle spasms #30 09/25/24 11/12/24 Rx tabs lidocaine 5 % topical patch 1 patch topical DAILY PRN pain 30 10/27/24 11/12/24 Rx (Lidoderm) days #30 ea diclofenac sodium 75 mg 75 mg PO BID PRN pain #60 tabs 10/28/24 11/12/24 Rx tablet,delayed release pregabalin 75 mg capsule 75 mg PO BID 30 days #60 caps 10/28/24 11/12/24 Rx New Prescriptions to Start Prescriptions: Allergies Allergy/AdvReac Type Severity Reaction Status Date / Time No Known Allergies Allergy Verified 09/25/24 10:46 Assessment and Plan *Assessment and plan (1) Greater trochanteric bursitis of right hip: Status: Acute Category: Medical Code(s): M70.61 - Trochanteric bursitis, right hip (2) Piriformis syndrome of right side: Status: Acute Category: Medical Code(s): G57.01 - Lesion of sciatic nerve, right lower limb (3) Myofascial pain on right side: Status: Acute Category: Medical Code(s): M79.18 - Myalgia, other site Plan Patient did have limited range of motion during today's visit and point tenderness along his right greater trochanteric bursa and right piriformis muscle. I did discuss with the patient that I do believe he would benefit from trigger point injections in the piriformis muscle as well as a bursa injection. Risk and benefits were discussed with the patient and he would like to proceed forward with this plan of care. Patient has tried and failed conservative therapy including oral medications, heat and ice, topicals, at home stretching exercise for longer than 12 weeks. Patient will be scheduled for a right piriformis injection and right greater trochanteric bursa injection. These will be done without fluoroscopic or ultrasound guidance. Patient has been instructed to contact the clinic with any concerns before the next appointment. Dr. Ramirez has reviewed this note and agrees with this plan of care. This note was dictated using voice recognition software and make contain errors or omissions. All injections are used with Lidocaine, Bupivacaine and dexamethasone. Occasionally urine drug screen is needed to verify patient's compliance with our office pain contract. This is ordered based off specific treatments related to chronic pain with the potential to abuse certain medications.
== END 2024-11-12 23:59 | disposition home or self-care (01) ==
LOC: SC.PAIN 13:37
PROVIDERS: PCP Nurse Practitioner Family; Visit Provider Nurse Practitioner Family
DX: M70.61 Trochanteric bursitis, right hip (principal); G57.01 Lesion of sciatic nerve, right lower limb; M79.18 Myalgia, other site
CPT/HCPCS: 99212; G0463

== ENCOUNTER 2024-12-04 10:59 | Day surgery (SDC) | payer OTHER, SELFPAY ==
[2024-12-04 11:07] VITALS: BP 163/92; PULSE 64; RESP 18; O2SAT 93; BMI 35.9
--- NOTE | 2024-12-04 11:48 | P.PCN_ITS ---
Procedure Date: 12/04/24 Time: 11:56 Anesthesiologist:: Radha Garcia APRN Complications:: None Pre-procedure Diagnosis:: Right piriformis syndrome, right greater trochanteric bursitis, chronic pain syndrome Post-procedure Diagnosis:: Same Indications for Procedure:: Patient is a pleasant 64-year-old male who presents today for trigger point injections of his right piriformis and a right greater trochanteric bursa injection. He denies any new changes from His last appointment. Patient is still having chronic pain in these locations. He does state that typically the injections are little bit more delayed and it takes more time to notice significant improvement. He is prescribed compounded cream from our office. His Jose has been reviewed and is appropriate. Physical Exam: General: Alert and oriented x3, no acute distress, pleasant and cooperative Lungs: Respirations even and unlabored, symmetrical chest expansion Eyes: PERRL Musculoskeletal: Flexion and extension of lumbar [spine] somewhat guarded secondary to pain, [antalgic gait noted] Neurological: Speech clear, no gross sensory deficit Procedure Details:: Patient did have noninvasive blood pressure cuff applied and pulse oximeter. Patient was placed in a sitting position and palpated along his right piriformis muscles. Areas of point tenderness were marked and using a sterile 25-gauge needle approximately 5 mL of 0.25% bupivacaine, 1% lidocaine and 10 mg dexamethasone were incrementally injected into right piriformis muscles. Needle was removed and sterile bandages applied. Patient tolerated the procedure well with no complications and was discharged neurologically intact. Patient's skin was then cleansed around his right hip and using a sterile 18- gauge needle approximately 5 mL of 0.25% bupivacaine, 1% lidocaine and 10 mg dexamethasone were incrementally injected into his right greater trochanteric bursa. Needle was removed and bandage applied. Patient tolerated the procedure well with no complications and was discharged neurologically intact. Plan and Disposition:: Patient did well with both of his injections and we will follow-up with him in 2 weeks for efficacy. Patient agrees with this plan of care. Patient has been instructed to contact the clinic with any concerns before the next appointment. Dr. Ramirez has reviewed this note and agrees with this plan of care. This note was dictated using voice recognition software and make contain errors or omissions. All injections are used with Lidocaine, Bupivacaine and dexamethasone. Occasionally urine drug screen is needed to verify patient's compliance with our office pain contract. This is ordered based off specific treatments related to chronic pain with the potential to abuse certain medications.
[2024-12-04] MEDS: BUPIVACAINE 0.25% 10ML INJ 25 MG IJ (12:00)
[2024-12-04] MEDS: DEXAMETHASONE 10MG/ML 1ML VIAL 10 MG (12:01)
[2024-12-04] MEDS: LIDOCAINE 1% 5ML PF VIAL 5 ML (12:01)
[2024-12-04 12:07] VITALS: BP 145/69; PULSE 59; RESP 18; O2SAT 93
[2024-12-04 12:10] VITALS: BP 145/89; PULSE 64; RESP 18; O2SAT 94
[2024-12-04 12:27] VITALS: BP 145/89; PULSE 64; RESP 18; O2SAT 94
== END 2024-12-04 12:07 | disposition home or self-care (01) ==
PROVIDERS: PCP Nurse Practitioner Family; Visit Provider Nurse Practitioner Family
DX: M70.61 Trochanteric bursitis, right hip (principal); G89.4 Chronic pain syndrome; G57.01 Lesion of sciatic nerve, right lower limb; M79.18 Myalgia, other site; I10 Essential (primary) hypertension; E11.9 Type 2 diabetes mellitus without complications; I25.10 Atherosclerotic heart disease of native coronary artery without angina pectoris; Z87.891 Personal history of nicotine dependence; Z79.84 Long term (current) use of oral hypoglycemic drugs; Z79.82 Long term (current) use of aspirin; Z79.899 Other long term (current) drug therapy
CPT/HCPCS: 20552; 20610; J0665; J1100; J2003

== ENCOUNTER 2025-01-20 10:34 | Outpatient (CLI) | payer OTHER, SELFPAY ==
[2025-01-20 13:16] LABS: Coronavirus 19, PCR Not Detected (NotDetected); Influenza A, PCR Not Detected (NotDetected); Influenza B, PCR Not Detected (NotDetected)
[2025-01-20 14:01] LABS: Alanine Aminotransferase 31 U/L (12-78); Albumin Level 4.2 g/dl (3.5-5.0); Albumin/Globulin Ratio 1.5 (1.1-1.8); Alkaline Phosphatase 97 U/L (38-126); Anion Gap 16.6 mEq/L (5-15); Aspartate Amino Transferase 26 U/L (17-59); Bilirubin,Total 0.8 mg/dl (0.2-1.3); Blood Urea Nitrogen 14 mg/dl (9-20); Calcium 8.9 mg/dl (8.4-10.2); Carbon Dioxide 20 mmol/L (22.0-30.0); Chloride 107 mmol/L (98-107); Creatinine,Serum 0.80 mg/dl (0.66-1.25); Estimated Glomerular Filt Rate 98 ml/min (>60); GFR (African American) 118 ML/MIN (>60); Globulin 2.8 g/dL (1.3-3.2); Glucose 112 mg/dl (74-100); Magnesium 2.1 mg/dl (1.6-2.3); Potassium 4.6 mmoL/L (3.5-5.1); Sodium 139 mmol/L (136-145); Total Protein,Serum 7.0 g/dl (6.3-8.2)
[2025-01-20 15:02] LABS: Hemoglobin A1C 6.1 % (4.0-6.0)
== END 2025-01-20 23:59 ==
LOC: LAB.DROPOF 01-21 10:03
PROVIDERS: PCP Nurse Practitioner Family; Visit Provider Nurse Practitioner Family
DX: E11.9 Type 2 diabetes mellitus without complications (principal); R68.89 Other general symptoms and signs
CPT/HCPCS: 80053; 82043; 82570; 83036; 83735; 87631

== ENCOUNTER 2025-03-12 11:12 | Outpatient (CLI) | payer OTHER, SELFPAY ==
[2025-03-12 16:23] LABS: Alanine Aminotransferase 47 U/L (12-78); Albumin Level 4.7 g/dl (3.5-5.0); Albumin/Globulin Ratio 1.7 (1.1-1.8); Alkaline Phosphatase 73 U/L (38-126); Anion Gap 13.9 mEq/L (5-15); Aspartate Amino Transferase 38 U/L (17-59); Bilirubin,Total 0.6 mg/dl (0.2-1.3); Blood Urea Nitrogen 18 mg/dl (9-20); Calcium 9.4 mg/dl (8.4-10.2); Carbon Dioxide 21 mmol/L (22.0-30.0); Chloride 104 mmol/L (98-107); Creatinine,Serum 0.80 mg/dl (0.66-1.25); Estimated Glomerular Filt Rate 97 ml/min (>60); GFR (African American) 118 ML/MIN (>60); Globulin 2.7 g/dL (1.3-3.2); Glucose 84 mg/dl (74-100); Magnesium 2.2 mg/dl (1.6-2.3); Potassium 4.9 mmoL/L (3.5-5.1); Sodium 134 mmol/L (136-145); Total Protein,Serum 7.4 g/dl (6.3-8.2)
== END 2025-03-12 23:59 ==
LOC: LAB.DROPOF 03-15 11:13
PROVIDERS: PCP Nurse Practitioner Family; Visit Provider Nurse Practitioner Family
DX: R25.2 Cramp and spasm (principal); Z12.5 Encounter for screening for malignant neoplasm of prostate
CPT/HCPCS: 80053; 83735; G0103